=== PATIENT | male | born 1960 | race American Indian/Alaskan Native ===

== ENCOUNTER 2018-08-31 20:33 | Inpatient (IN) | payer MEDICAID ==
--- NOTE | 2018-08-31 21:33 | C.PDOC ---
History Of Present Illness 57 y/o male pt with hx of b/l hip replacement presents to the ER c/o right hip pain. Pt reports of a fall today in the parking lot, landing on his right hip. Pt denies LOC, head injury or any other complaints or associated sx at this time. Time Seen by Provider: 08/31/18 21:00 Chief Complaint (Nursing): Trauma History Per: Patient History/Exam Limitations: no limitations Onset/Duration Of Symptoms: Hrs Current Symptoms Are (Timing): Still Present - Hip Description Of Injury: Fell Past Medical History Reviewed: Historical Data, Nursing Documentation, Vital Signs Vital Signs: Last Vital Signs Temp 98.4 F 08/31/18 20:55 Pulse 74 08/31/18 20:55 Resp 20 08/31/18 20:55 BP 139/80 08/31/18 20:55 Pulse Ox 95 08/31/18 20:55 - Medical History PMH: HTN, Hypercholesterolemia Family History: States: No Known Family Hx - Social History Hx Alcohol Use: No Hx Substance Use: No - Immunization History Hx Tetanus Toxoid Vaccination: No Hx Influenza Vaccination: No Hx Pneumococcal Vaccination: No Review Of Systems Except As Marked, All Systems Reviewed And Found Negative. Musculoskeletal: Positive for: Other (hip pain ) Physical Exam - Physical Exam Appears: Non-toxic, No Acute Distress Skin: Normal Color, Warm, Dry Head: Atraumatic, Normacephalic Eye(s): bilateral: Normal Inspection, PERRL, EOMI Nose: Normal Oral Mucosa: Moist Chest: Symmetrical Cardiovascular: Rhythm Regular, No Murmur Respiratory: Normal Breath Sounds, No Rales, No Rhonchi, No Wheezing Gastrointestinal/Abdominal: Normal Exam, Soft, No Tenderness Extremity: Tenderness (to the right hip ), Capillary Refill (<2 sec ), No Deformity Extremity: Bilateral: Normal Color And Temperature Neurological/Psych: Oriented x3, Normal Speech ED Course And Treatment - Laboratory Results Result Diagrams: 08/31/18 21:41 08/31/18 21:41 ECG: Interpreted By Me, Viewed By Me ECG Rhythm: Sinus Rhythm Interpretation Of ECG: normal intervals, normal axis, no ST/T wave abnormality Rate From EC O2 Sat by Pulse Oximetry: 95 (RA) Pulse Ox Interpretation: Normal Medical Decision Making Medical Decision Making: Assessment: right hip pain plans: -- chem labs -- blood work -- EKG -- CXR -- ibuprofen orthopaedic notified Disposition Discussed With : Veronique Zhao Counseled Patient/Family Regarding: Studies Performed, Diagnosis - Disposition Disposition: HOSPITALIZED Disposition Time: 21:32 Condition: STABLE - Clinical Impression Clinical Impression: Hip fracture - Scribe Statement The provider has reviewed the documentation as recorded by the Scribe Roxana Naqvi Provider Attestation: All medical record entries made by the Scribe were at my direction and personally dictated by me. I have reviewed the chart and agree that the record accurately reflects my personal performance of the history, physical exam, medical decision making, and the department course for this patient. I have also personally directed, reviewed, and agree with the discharge instructions and disposition.
[2018-08-31 21:48] LABS: BASO # 0.1 K/uL (0.0-0.2); BASO % 0.9 % (0.0-2.0); EOS # 0.3 K/uL (0.0-0.7); EOS % 4.9 % (0.0-4.0); HEMOGLOBIN 12.9 g/dL (12.0-18.0); LYMPH # 1.8 K/uL (1.0-4.3); LYMPH % 28.9 % (20.0-40.0); MEAN CELL VOLUME 80.5 fL (80.0-94.0); MEAN CORPUSCULAR HEMOGLOBIN 25.8 pg (27.0-31.0); MEAN CORPUSCULAR HGB CONC 32.1 g/dL (33.0-37.0); MEAN PLATELET VOLUME 8.3 fL (7.2-11.7); MONO # 0.5 K/uL (0.0-0.8); MONO % 8.8 % (0.0-10.0); NEUT # 3.5 K/uL (1.8-7.0); NEUT % 56.5 % (50.0-75.0); RED CELL DISTRIBUTION WIDTH 15.4 % (11.5-14.5); WHITE BLOOD COUNT 6.1 K/uL (4.8-10.8)
[2018-08-31 21:55] LABS: PROTHROMBIN TIME 11.3 SECONDS (9.7-12.2)
[2018-08-31 22:05] LABS: ALB/GLOB RATIO 1.3 (1.0-2.1); ALBUMIN 4.3 g/dL (3.5-5.0); ALT/SGPT 18 U/L (21-72); AST/SGOT 30 U/L (17-59); BLOOD UREA NITROGEN 19 mg/dL (9-20); CALCIUM 8.9 mg/dl (8.6-10.4); GFR NON-AFRICAN AMERICAN > 60
--- NOTE | 2018-09-01 10:18 | CP.PCM.CON ---
History of Present Illness - History of Present Illness History of Present Illness: ID 57 yo male CC- Severe pain and restricted ROM R HIP HPI- 57 yo male who underwent primary total hip replacement in 2011 presents w ith severe pain and inability to ambulate R hip ;pt sustained fall- presented as an meergency to [facility] ER with pain and inabitlity to mabulate Xrays reveal prosthetic frcature. POt had 3 subsequnet dislocations after the index arthroplasty in 2011 Past Patient History - Infectious Disease Hx of Infectious Diseases: None - Past Medical History & Family History Past Medical History?: Yes - Past Social History Smoking Status: Heavy Smoker > 10 Cigarettes Daily - CARDIAC Hx Hypercholesterolemia: Yes Hx Hypertension: Yes - ENDOCRINE/METABOLIC Other/Comment: Borderline Diabetes - MUSCULOSKELETAL/RHEUMATOLOGICAL Hx Falls: Yes Other/Comment: Fer. Foot/Toes Bunions - PSYCHIATRIC Hx Substance Use: No - SURGICAL HISTORY Hx Surgeries: Yes Hx Orthopedic Surgery: Yes (bilateral hip surgery) - ANESTHESIA Hx Anesthesia: Yes Hx Anesthesia Reactions: No Hx Malignant Hyperthermia: No Has any member of the family had a problem w/ anesthesia?: No Meds Allergies/Adverse Reactions: Allergies Allergy/AdvReac Type Severity Reaction Status Date / Time Penicillins Allergy Verified 08/31/18 21:02 - Medications Medications: Current Medications Enoxaparin Sodium (Lovenox) 40 mg SC DAILY [facility] Hydromorphone HCl (Dilaudid) 1 mg IVP Q4H PRN PRN Reason: Pain, moderate (4-7) Influenza Virus Vaccine (Flucelvax Quad 2653-5578 Syr) 60 mcg IM .ONCE ONE Stop: 09/03/18 11:01 Pneumococcal Polyvalent Vaccine (Pneumovax 23 Vaccine) 0.5 ml IM .ONCE ONE Stop: 09/03/18 11:01 Physical Exam - Additional Findings Additional findings: Physical Exam systemic exam morbidly obese 57 yo male systemnic physical exam as per Medicine Musculoskekeltal stance/gaoit- defrred pt wiht obvious pain and deformity R lower ext N/V intact;some evidence fro hypestheisa R lower ext Results - Vital Signs Recent Vital Signs: Last Vital Signs Temp 97.8 F 09/01/18 07:00 Pulse 56 L 09/01/18 07:00 Resp 20 09/01/18 07:00 BP 141/93 H 09/01/18 07:00 Pulse Ox 96 09/01/18 07:00 - Labs Result Diagrams: 08/31/18 21:41 08/31/18 21:41 Labs: Laboratory Results - last 24 hr 08/31/18 08/31/18 08/31/18 21:41 21:41 21:41 WBC 6.1 RBC 5.00 Hgb 12.9 Hct 40.3 MCV 80.5 MCH 25.8 L MCHC 32.1 L RDW 15.4 H Plt Count 198 MPV 8.3 Neut % (Auto) 56.5 Lymph % (Auto) 28.9 Alger % (Auto) 8.8 Eos % (Auto) 4.9 H Baso % (Auto) 0.9 Neut # (Auto) 3.5 Lymph # (Auto) 1.8 Alger # (Auto) 0.5 Eos # (Auto) 0.3 Baso # (Auto) 0.1 PT 11.3 INR 1.0 APTT 33 Sodium 132 Potassium 4.2 Chloride 90 L Carbon Dioxide 35 H Anion Gap 11 BUN 19 Creatinine 1.0 Est GFR ( Amer) > 60 Est GFR (Non-Af Amer) > 60 POC Glucose (mg/dL) Random Glucose 210 H Calcium 8.9 Total Bilirubin 0.2 AST 30 ALT 18 L Alkaline Phosphatase 83 Total Protein 7.7 Albumin 4.3 Globulin 3.4 Albumin/Globulin Ratio 1.3 Blood Type Antibody Screen 08/31/18 09/01/18 21:41 06:20 WBC RBC Hgb Hct MCV MCH MCHC RDW Plt Count MPV Neut % (Auto) Lymph % (Auto) Alger % (Auto) Eos % (Auto) Baso % (Auto) Neut # (Auto) Lymph # (Auto) Alger # (Auto) Eos # (Auto) Baso # (Auto) PT INR APTT Sodium Potassium Chloride Carbon Dioxide Anion Gap BUN Creatinine Est GFR ( Amer) Est GFR (Non-Af Amer) POC Glucose (mg/dL) 151 H Random Glucose Calcium Total Bilirubin AST ALT Alkaline Phosphatase Total Protein Albumin Globulin Albumin/Globulin Ratio Blood Type O POSITIVE Antibody Screen Negative - Impressions Impression: Xrays a/P pelvis xray and A/P and attempted frog lateral of R hiup reveal evdience for fx prosthesis Assessment & Plan - Assessment and Plan (Free Text) Assessment: A- Fx R toatl hip/ femoral stem prosthesis P- For revisin THR preop planning must be accomplished for this extremely high risk/difficult case. Possibility of toatl reveison /possibility of isolated femoral componenet revision/possibility pof removing all components in a Girdlestone type procedure discussed. Pt prenets to hospital with hip abduction brace(??) janes having used in for sveeral years. when specifically questioned he noted the paoin and iunability to ambulate occurred yesterday in the fall at an apt complex across [address] from [facility]
[2018-09-01] MEDS: Enoxaparin 40 mg Syringe SC SCH (10:25)
[2018-09-01] MEDS: HYDROmorphone 1 mg/ml ISec IVP PRN (10:35)
--- NOTE | 2018-09-01 12:17 | RAD ---
PROCEDURE: Right Hip Radiographs. HISTORY: fall COMPARISON: None. TECHNIQUE: 2 views obtained. FINDINGS: BONES: Status post total bilateral hip replacement. There is a fracture noted at the neck of the right hip prosthesis. There is dislocation of the right hip head prosthesis JOINTS: . SOFT TISSUES: Normal. OTHER FINDINGS: None. IMPRESSION: Fracture and dislocation of the right hip prosthesis noted.
--- NOTE | 2018-09-01 12:18 | RAD ---
Date of service: 08/31/2018 PROCEDURE: CHEST RADIOGRAPH, 1 VIEW HISTORY: SOB COMPARISON: No prior similar study for comparison FINDINGS: LUNGS: Small linear opacity at the lower lobes likely atelectasis or scar tissue. PLEURA: No pneumothorax or pleural fluid seen. CARDIOVASCULAR: No aortic atherosclerotic calcification present. Normal. OSSEOUS STRUCTURES: No significant abnormalities. VISUALIZED UPPER ABDOMEN: Normal. OTHER FINDINGS: None. IMPRESSION: Small linear opacity at the lung bases likely atelectasis or scar tissue.
--- NOTE | 2018-09-01 16:10 | CT ---
Date of service: 09/01/2018 PROCEDURE: CT of the right hip without contrast HISTORY: prosthesis fracture COMPARISON: Comparison is made with the previous x-ray done on 08/31/2018 TECHNIQUE: Axial and reformatted coronal and sagittal CT images of the right hip were obtained without contrast administration. 3D reformatted images of the right hip were also obtained. Total exam DLP: 2074.93 FINDINGS: The patient is status post total right hip replacement. There is fracture noted at neck of the prosthesis that connected the femoral component with the prosthesis head. There is mild superior displacement of the femoral shaft noted comparing to the hip joint and acetabulum noted. The head of the prosthesis is seen in the in place without evidence of dislocation. The acetabular component of the prosthesis is also noted in place. IMPRESSION: Fracture at neck portion of the hip prosthesis. Mild superior displacement of the femoral shaft relative to the hip noted.
[2018-09-01] MEDS: Pantoprazole 40 mg EC Tab PO SCH (18:44)
[2018-09-01] MEDS: Aspirin 325 mg EC Tablets PO SCH (18:44)
[2018-09-02 08:26] LABS: BASO % 0.5 % (0.0-2.0); EOS # 0.2 K/uL (0.0-0.7); EOS % 4.4 % (0.0-4.0); HEMOGLOBIN 13.3 g/dL (12.0-18.0); LYMPH # 1.6 K/uL (1.0-4.3); LYMPH % 31.6 % (20.0-40.0); MEAN CELL VOLUME 80.1 fL (80.0-94.0); MEAN CORPUSCULAR HEMOGLOBIN 26.6 pg (27.0-31.0); MEAN CORPUSCULAR HGB CONC 33.3 g/dL (33.0-37.0); MEAN PLATELET VOLUME 8.8 fL (7.2-11.7); MONO # 0.7 K/uL (0.0-0.8); MONO % 13.6 % (0.0-10.0); NEUT # 2.5 K/uL (1.8-7.0); NEUT % 49.9 % (50.0-75.0); RBC 4.99 Mil/uL (4.40-5.90); RED CELL DISTRIBUTION WIDTH 15.2 % (11.5-14.5); WHITE BLOOD COUNT 5.1 K/uL (4.8-10.8)
[2018-09-02 08:38] LABS: ALB/GLOB RATIO 1.2 (1.0-2.1); ALT/SGPT 11 U/L (21-72); AST/SGOT 25 U/L (17-59); BLOOD UREA NITROGEN 14 mg/dL (9-20); CALCIUM 9.2 mg/dl (8.6-10.4); GFR NON-AFRICAN AMERICAN > 60
[2018-09-02] MEDS: Aspirin 325 mg EC Tablets PO SCH (11:00)
[2018-09-02] MEDS: Enoxaparin 40 mg Syringe SC SCH (11:00)
[2018-09-02] MEDS: Pantoprazole 40 mg EC Tab PO SCH (11:00)
[2018-09-02] MEDS: HYDROmorphone 1 mg/ml ISec IVP PRN (11:30)
--- NOTE | 2018-09-02 16:19 | HP ---
HISTORY OF PRESENT ILLNESS: The patient 57 year-old male chief complaint hip replacement.Patient came to the ER, advised admission. hypertension, arthritis. PHYSICAL EXAMINATION: GENERAL: The patient is awake, alert, and oriented. VITAL SIGNS: Temperature 98, pulse 90. HEENT: Within normal limits. NECK: Supple. CHEST: Symmetrical. HEART: Regular. ABDOMEN: Soft. EXTREMITIES: No edema. IMPRESSION AND PLAN: The patient was placed on bed rest, supportive care. Veronique Zhao MD
--- NOTE | 2018-09-03 09:06 | CP.PCM.PN ---
Subjective - Date & Time of Evaluation Date of Evaluation: 09/03/18 Time of Evaluation: 09:05 - Subjective Subjective: 57 year old male with a past medical history of bilateral hip replacement, hypertension and hypercholesterolemia who presents to the hospital after tripping and hurting his hip. Patient reports walking and tripping which started the right hip pain. Of note, patient states the right hip has been dislocated three times after being replaced. He denies anything at home for the pain. Patient denies any other fevers, chills, headaches, dizziness, chest pain, syncopal episodes, or any other complaints. PMD: Cece Medical history: htn, hypercholesterolemia Allergies: pcn'S Surgical history: Bilateral hip replacement Social history: Current smoker. Denies illicit drug use. Objective - Vital Signs/Intake and Output Vital Signs (last 24 hours): Temp Pulse Resp BP Pulse Ox 98.2 F 74 18 116/78 92 L 09/03/18 07:54 09/03/18 07:54 09/03/18 07:54 09/03/18 07:54 09/03/18 07:54 Intake and Output: 09/03/18 09/03/18 06:59 18:59 Intake Total 480 Output Total 450 Balance 30 - Medications Medications: Current Medications Amlodipine Besylate (Norvasc) 10 mg PO DAILY [facility] Last Admin: 09/02/18 11:00 Dose: 10 mg Aspirin (Ecotrin) 325 mg PO DAILY [facility] Last Admin: 09/02/18 11:00 Dose: 325 mg Cyclobenzaprine HCl (Flexeril) 10 mg PO DAILY [facility] Last Admin: 09/02/18 11:00 Dose: 10 mg Enoxaparin Sodium (Lovenox) 40 mg SC DAILY [facility] Last Admin: 09/02/18 11:00 Dose: 40 mg Hydrochlorothiazide (Hydrodiuril) 25 mg PO DAILY [facility] Last Admin: 09/02/18 11:00 Dose: 25 mg Hydromorphone HCl (Dilaudid) 1 mg IVP Q4H PRN PRN Reason: Pain, moderate (4-7) Last Admin: 09/02/18 11:30 Dose: 1 mg Influenza Virus Vaccine (Flucelvax Quad 2112-1378 Syr) 60 mcg IM .ONCE ONE Stop: 09/03/18 11:01 Metoprolol Tartrate (Lopressor) 50 mg PO BID [facility] Last Admin: 09/02/18 18:15 Dose: 50 mg Pantoprazole Sodium (Protonix Ec Tab) 40 mg PO DAILY [facility] Last Admin: 09/02/18 11:00 Dose: 40 mg Pneumococcal Polyvalent Vaccine (Pneumovax 23 Vaccine) 0.5 ml IM .ONCE ONE Stop: 09/03/18 11:01 Rosuvastatin Calcium (Crestor) 10 mg PO HS [facility] Last Admin: 09/02/18 21:22 Dose: 10 mg - Labs Labs: 09/02/18 07:57 09/02/18 07:57 PT 11.3 SECONDS (9.7-12.2) 08/31/18 21:41 INR 1.0 08/31/18 21:41 APTT 33 SECONDS (21-34) 08/31/18 21:41 - Head Exam Head Exam: ATRAUMATIC, NORMAL INSPECTION - Eye Exam Eye Exam: EOMI, Normal appearance, PERRL Pupil Exam: NORMAL ACCOMODATION, PERRL - ENT Exam ENT Exam: Mucous Membranes Moist, Normal Oropharynx - Respiratory Exam Respiratory Exam: Clear to Ausculation Bilateral, NORMAL BREATHING PATTERN. absent: Prolonged Expiratory Phase, Respiratory Distress - Cardiovascular Exam Cardiovascular Exam: REGULAR RHYTHM, +S1, +S2 - GI/Abdominal Exam GI & Abdominal Exam: Soft, Normal Bowel Sounds. absent: Rigid, Hyperactive Bowel Sounds - Back Exam Back Exam: NORMAL INSPECTION. absent: CVA tenderness (R), paraspinal tenderness - Neurological Exam Neurological Exam: Alert, Awake, Oriented x3 - Psychiatric Exam Psychiatric exam: Normal Affect, Normal Mood. absent: Depressed - Skin Skin Exam: Dry, Intact, Normal Color Assessment and Plan - Assessment and Plan (Free Text) Assessment: 57 year old male with a past medical history of bilateral hip replacement, hypertension and hypercholesterolemia who presents to the hospital after tripping and hurting his hip. Plan: 1. Right hip pain s/p mechanical fall Hip xray:Fracture and dislocation of the right hip prosthesis noted. Hip ct scan:Fracture at neck portion of the hip prosthesis. Mild superior displacement of the femoral shaft relative to the hip noted. Orthopedics consulted Dr. Sebastian: :break of neck of stem right hip prosthesis will need complex revision total hip replacement vs revision femoral component preop planning in progress, awaiting plan as per Dr. Sebastian at this time, VTE proph, patient is tolerating OOB on own so will formally start PT with NWB RLE if tolerated to avoid deconditioning and decrease risk of VTE/pneumonia Medications: Dialaudid 1mg IVP Q4 PRN Flexeril 10mg PO DAILY 2. Hypertension Continue Norvasc 10mg PO DAILY Continue Metoprolol 50mg PO BID Continue Hydrochlorothiazide 25mg PO DAILY 3. Hypercholesterolemia Continue Rosuvastatin 10mg PO HS ppx -Protonix 40mg PO DAILY -Lovenox 40 mg SC DAILY Dispo: Expected to have revision of right hip replacement. Plan discussed with Attending Dr. Cece Delgadillo, PGY-2
[2018-09-03] MEDS ORDERED: Pneumococcal 23-Valent Vaccine IM ONE (11:00)
[2018-09-03] MEDS ORDERED: Influenza Vaccine 60 mcg/0.5 mL SYR (4YR UP) IM ONE (11:00)
[2018-09-03 11:46] LABS: BASO % 0.5 % (0.0-2.0); EOS # 0.2 K/uL (0.0-0.7); EOS % 2.8 % (0.0-4.0); HEMOGLOBIN 13.9 g/dL (12.0-18.0); LYMPH # 1.3 K/uL (1.0-4.3); LYMPH % 22.1 % (20.0-40.0); MEAN CELL VOLUME 80.7 fL (80.0-94.0); MEAN CORPUSCULAR HEMOGLOBIN 26.4 pg (27.0-31.0); MEAN CORPUSCULAR HGB CONC 32.7 g/dL (33.0-37.0); MEAN PLATELET VOLUME 8.9 fL (7.2-11.7); MONO # 0.6 K/uL (0.0-0.8); MONO % 9.9 % (0.0-10.0); NEUT # 3.8 K/uL (1.8-7.0); NEUT % 64.7 % (50.0-75.0); RBC 5.25 Mil/uL (4.40-5.90); RED CELL DISTRIBUTION WIDTH 15.3 % (11.5-14.5); WHITE BLOOD COUNT 5.9 K/uL (4.8-10.8)
--- NOTE | 2018-09-03 12:22 | CARD ---
APPROVED REPORT Date of service: 08/31/2018 EKG Measurement Heart [id number] <Conclusion> Normal sinus rhythm Normal ECG
[2018-09-03 12:31] LABS: ALB/GLOB RATIO 1.2 (1.0-2.1); ALBUMIN 4.1 g/dL (3.5-5.0); ALT/SGPT 16 U/L (21-72); AST/SGOT 24 U/L (17-59); BLOOD UREA NITROGEN 24 mg/dL (9-20); CALCIUM 8.9 mg/dl (8.6-10.4); GFR NON-AFRICAN AMERICAN > 60
--- NOTE | 2018-09-03 14:14 | CP.PCM.PN ---
Subjective - Date & Time of Evaluation Date of Evaluation: 09/03/18 Time of Evaluation: 14:12 - Subjective Subjective: Patient states his pain is better controlled today. No new complaints. Denies CP/SOB/dizziness. Objective - Vital Signs/Intake and Output Vital Signs (last 24 hours): Temp Pulse Resp BP Pulse Ox 98.2 F 74 18 116/78 92 L 09/03/18 07:54 09/03/18 07:54 09/03/18 07:54 09/03/18 07:54 09/03/18 07:54 Intake and Output: 09/03/18 09/03/18 06:59 18:59 Intake Total 480 Output Total 450 Balance 30 - Medications Medications: Current Medications Amlodipine Besylate (Norvasc) 10 mg PO DAILY [facility] Last Admin: 09/02/18 11:00 Dose: 10 mg Aspirin (Ecotrin) 325 mg PO DAILY [facility] Last Admin: 09/02/18 11:00 Dose: 325 mg Cyclobenzaprine HCl (Flexeril) 10 mg PO DAILY [facility] Last Admin: 09/02/18 11:00 Dose: 10 mg Enoxaparin Sodium (Lovenox) 40 mg SC DAILY [facility] Last Admin: 09/02/18 11:00 Dose: 40 mg Hydrochlorothiazide (Hydrodiuril) 25 mg PO DAILY [facility] Last Admin: 09/02/18 11:00 Dose: 25 mg Hydromorphone HCl (Dilaudid) 1 mg IVP Q4H PRN PRN Reason: Pain, moderate (4-7) Last Admin: 09/02/18 11:30 Dose: 1 mg Metoprolol Tartrate (Lopressor) 50 mg PO BID [facility] Last Admin: 09/02/18 18:15 Dose: 50 mg Pantoprazole Sodium (Protonix Ec Tab) 40 mg PO DAILY [facility] Last Admin: 09/02/18 11:00 Dose: 40 mg Rosuvastatin Calcium (Crestor) 10 mg PO HS [facility] Last Admin: 09/02/18 21:22 Dose: 10 mg - Labs Labs: 09/03/18 11:35 09/03/18 11:35 PT 11.3 SECONDS (9.7-12.2) 08/31/18 21:41 INR 1.0 08/31/18 21:41 APTT 33 SECONDS (21-34) 03/29/19 21:41 - Extremities Exam Additional comments: RLE: +ROM ankle/toes, senation intact +DP/PT pulses calves soft NT neg homans Assessment and Plan (1) Broken internal hip prosthesis Assessment & Plan: break of neck of stem right hip prosthesis will need complex revision total hip replacement vs revision femoral component preop planning in progress, awaiting plan as per Dr. Sebastian at this time, VTE proph, patient is tolerating OOB on own so will formally start PT with NWB RLE if tolerated to avoid deconditioning and decrease risk of VTE/pneumonia d/w Dr. Sebastian, agrees with above Status: Acute
[2018-09-03] MEDS: HYDROmorphone 1 mg/ml ISec IVP PRN (17:27)
--- NOTE | 2018-09-04 09:28 | CP.PCM.PN ---
Subjective - Date & Time of Evaluation Date of Evaluation: 09/04/18 Time of Evaluation: 09:28 - Subjective Subjective: Medicine Progress Note: Patient seen and examined at bedside. Per nursing no acute events occurred overnight. Patient denies any fevers, chills, headaches, chest pain, abdominal pain, changes in vision, or any other complaints. Objective - Vital Signs/Intake and Output Vital Signs (last 24 hours): Temp Pulse Resp BP Pulse Ox 98.5 F 74 20 139/97 H 96 09/04/18 07:00 09/04/18 07:00 09/04/18 07:00 09/04/18 07:00 09/04/18 07:00 - Medications Medications: Current Medications Amlodipine Besylate (Norvasc) 10 mg PO DAILY [facility] Last Admin: 09/02/18 11:00 Dose: 10 mg Aspirin (Ecotrin) 325 mg PO DAILY [facility] Last Admin: 09/02/18 11:00 Dose: 325 mg Cyclobenzaprine HCl (Flexeril) 10 mg PO DAILY [facility] Last Admin: 09/02/18 11:00 Dose: 10 mg Enoxaparin Sodium (Lovenox) 40 mg SC DAILY [facility] Last Admin: 09/02/18 11:00 Dose: 40 mg Hydrochlorothiazide (Hydrodiuril) 25 mg PO DAILY [facility] Last Admin: 09/02/18 11:00 Dose: 25 mg Hydromorphone HCl (Dilaudid) 1 mg IVP Q4H PRN PRN Reason: Pain, moderate (4-7) Last Admin: 09/03/18 17:27 Dose: 1 mg Metoprolol Tartrate (Lopressor) 50 mg PO BID [facility] Last Admin: 09/03/18 17:20 Dose: 50 mg Pantoprazole Sodium (Protonix Ec Tab) 40 mg PO DAILY [facility] Last Admin: 09/02/18 11:00 Dose: 40 mg Rosuvastatin Calcium (Crestor) 10 mg PO HS [facility] Last Admin: 09/03/18 21:06 Dose: 10 mg - Labs Labs: 09/03/18 11:35 09/03/18 11:35 PT 11.3 SECONDS (9.7-12.2) 08/31/18 21:41 INR 1.0 08/31/18 21:41 APTT 33 SECONDS (21-34) 08/31/18 21:41 - Head Exam Head Exam: ATRAUMATIC, NORMAL INSPECTION - Eye Exam Eye Exam: EOMI, Normal appearance, PERRL Pupil Exam: NORMAL ACCOMODATION - ENT Exam ENT Exam: Mucous Membranes Moist - Respiratory Exam Respiratory Exam: Clear to Ausculation Bilateral, NORMAL BREATHING PATTERN. absent: Prolonged Expiratory Phase, Respiratory Distress - Cardiovascular Exam Cardiovascular Exam: REGULAR RHYTHM, +S1, +S2. absent: Rubs - GI/Abdominal Exam GI & Abdominal Exam: Soft, Normal Bowel Sounds. absent: Hyperactive Bowel Sounds - Extremities Exam Extremities Exam: Full ROM, Normal Inspection. absent: Pedal Edema - Back Exam Back Exam: NORMAL INSPECTION. absent: paraspinal tenderness - Neurological Exam Neurological Exam: Alert, Awake, CN II-XII Intact, Oriented x3 - Psychiatric Exam Psychiatric exam: Normal Affect, Normal Mood. absent: Depressed - Skin Skin Exam: Dry, Intact Assessment and Plan - Assessment and Plan (Free Text) Plan: 57 year old male with a past medical history of bilateral hip replacement, hypertension and hypercholesterolemia who presents to the hospital after tripping and hurting his hip. Plan: 1. Right hip pain s/p mechanical fall Hip xray:Fracture and dislocation of the right hip prosthesis noted. Hip ct scan:Fracture at neck portion of the hip prosthesis. Mild superior displacement of the femoral shaft relative to the hip noted. Orthopedics consulted Dr. Sebastian: :break of neck of stem right hip prosthesis will need complex revision total hip replacement vs revision femoral component preop planning in progress, per Dr. Sebastian PA expected to go to O.R. at this time, VTE proph, patient is tolerating OOB on own so will formally start PT with NWB RLE if tolerated to avoid deconditioning and decrease risk of VTE/pneumonia Medications: Dialaudid 1mg IVP Q4 PRN Flexeril 10mg PO DAILY 2. Hypertension Continue Norvasc 10mg PO DAILY Continue Metoprolol 50mg PO BID Continue Hydrochlorothiazide 25mg PO DAILY 3. Hypercholesterolemia Continue Rosuvastatin 10mg PO HS ppx -Protonix 40mg PO DAILY -Lovenox 40 mg SC DAILY to be held 24 hours prior to surgery Dispo: Expected to have revision of right hip replacement in house per Dr. Sebastian . Plan discussed with Attending Dr. Cece Delgadillo, PGY-2
[2018-09-04] MEDS: Aspirin 325 mg EC Tablets PO SCH (10:34)
[2018-09-04] MEDS: Pantoprazole 40 mg EC Tab PO SCH (10:34)
[2018-09-04] MEDS: Enoxaparin 40 mg Syringe SC SCH (10:36)
--- NOTE | 2018-09-04 14:16 | CP.PCM.PN ---
Subjective - Date & Time of Evaluation Date of Evaluation: 09/04/18 Time of Evaluation: 14:15 - Subjective Subjective: Patient states pain is controlled with medication. No new complaints. Objective - Vital Signs/Intake and Output Vital Signs (last 24 hours): Temp Pulse Resp BP Pulse Ox 98.5 F 74 20 139/97 H 96 09/04/18 07:00 09/04/18 07:00 09/04/18 07:00 09/04/18 07:00 09/04/18 07:00 - Medications Medications: Current Medications Amlodipine Besylate (Norvasc) 10 mg PO DAILY [facility] Last Admin: 09/04/18 10:35 Dose: 10 mg Aspirin (Ecotrin) 325 mg PO DAILY [facility] Last Admin: 09/04/18 10:34 Dose: 325 mg Cyclobenzaprine HCl (Flexeril) 10 mg PO DAILY [facility] Last Admin: 09/04/18 10:35 Dose: 10 mg Enoxaparin Sodium (Lovenox) 40 mg SC DAILY [facility] Last Admin: 09/04/18 10:36 Dose: 40 mg Hydrochlorothiazide (Hydrodiuril) 25 mg PO DAILY [facility] Last Admin: 09/04/18 10:42 Dose: 25 mg Hydromorphone HCl (Dilaudid) 1 mg IVP Q4H PRN PRN Reason: Pain, moderate (4-7) Last Admin: 09/03/18 17:27 Dose: 1 mg Metoprolol Tartrate (Lopressor) 50 mg PO BID [facility] Last Admin: 09/04/18 10:36 Dose: 50 mg Pantoprazole Sodium (Protonix Ec Tab) 40 mg PO DAILY [facility] Last Admin: 09/04/18 10:34 Dose: 40 mg Rosuvastatin Calcium (Crestor) 10 mg PO HS [facility] Last Admin: 09/03/18 21:06 Dose: 10 mg - Labs Labs: 09/03/18 11:35 09/03/18 11:35 PT 11.3 SECONDS (9.7-12.2) 08/31/18 21:41 INR 1.0 08/31/18 21:41 APTT 33 SECONDS (21-34) 08/31/18 21:41 - Extremities Exam Additional comments: RLE: +ROM ankle/toes, senation intact +DP/PT pulses calves soft NT neg homans Assessment and Plan (1) Broken internal hip prosthesis Assessment & Plan: break of neck of stem right hip prosthesis will need complex revision total hip replacement vs revision femoral component preop planning in progress, plan for surgery 09/06 at 11am at this time, VTE proph, patient is tolerating OOB on own so will formally start PT with NWB RLE if tolerated to avoid deconditioning and decrease risk of VTE/pneumonia SCDs BLE aspirin held will hold lovenox 24 hours prior to procedure check u/a, hgbA1c, vit d need tight glucose control perioperatively to decrease risk of infection labs in am, T&C d/w Dr. Sebastian, agrees with above Status: Acute
[2018-09-04 15:55] LABS: SQUAMOUS EPITHIAL 1 /hpf (0-5); URINE BILIRUBIN NEGATIVE (NEGATIVE); URINE BLOOD NEGATIVE (NEGATIVE); URINE CLARITY Hazy (Clear); URINE COLOR Yellow (YELLOW); URINE GLUCOSE (UA) 3+ mg/dL (Normal); URINE LEUKOCYTE ESTERASE TRACE Leu/uL (Negative); URINE PROTEIN NEGATIVE (NEGATIVE)
[2018-09-04] MEDS: HYDROmorphone 1 mg/ml ISec IVP PRN (16:35)
--- NOTE | 2018-09-05 07:58 | CP.PCM.PN ---
Subjective - Date & Time of Evaluation Date of Evaluation: 09/05/18 Time of Evaluation: 07:58 - Subjective Subjective: Medicine Progress Note - Dr Zhao's service Patient seen and examined at bedside. Per nursing no acute events overnight. Patient is doing well. He is scheduled for the OR tomorrow with ortho. Objective - Vital Signs/Intake and Output Vital Signs (last 24 hours): Temp Pulse Resp BP Pulse Ox 98 F 75 20 119/79 96 09/05/18 07:00 09/05/18 07:00 09/05/18 07:00 09/05/18 07:00 09/05/18 07:00 Intake and Output: 09/05/18 09/05/18 06:59 18:59 Intake Total 500 Output Total 600 Balance -100 - Medications Medications: Current Medications Amlodipine Besylate (Norvasc) 10 mg PO DAILY [facility] [place] Last Admin: 09/04/18 10:35 Dose: 10 mg Aspirin (Ecotrin) 325 mg PO DAILY [facility] Last Admin: 09/04/18 10:34 Dose: 325 mg Cyclobenzaprine HCl (Flexeril) 10 mg PO DAILY [facility] Last Admin: 09/04/18 10:35 Dose: 10 mg Enoxaparin Sodium (Lovenox) 40 mg SC DAILY [facility] [place] Last Admin: 09/04/18 10:36 Dose: 40 mg Hydrochlorothiazide (Hydrodiuril) 25 mg PO DAILY [facility] Last Admin: 09/04/18 10:42 Dose: 25 mg Hydromorphone HCl (Dilaudid) 1 mg IVP Q4H PRN PRN Reason: Pain, moderate (4-7) Last Admin: 09/04/18 16:35 Dose: 1 mg Metoprolol Tartrate (Lopressor) 50 mg PO BID [facility] [place] Last Admin: 09/04/18 10:36 Dose: 50 mg Pantoprazole Sodium (Protonix Ec Tab) 40 mg PO DAILY [facility] [place] Last Admin: 09/04/18 10:34 Dose: 40 mg Rosuvastatin Calcium (Crestor) 10 mg PO HS [facility] Last Admin: 09/04/18 21:17 Dose: 10 mg - Labs Labs: 09/03/18 11:35 09/03/18 11:35 PT 11.3 SECONDS (9.7-12.2) 08/31/18 21:41 INR 1.0 08/31/18 21:41 APTT 33 SECONDS (21-34) 08/31/18 21:41 - Additional Findings Additional findings: - Head Exam Head Exam: ATRAUMATIC, NORMAL INSPECTION - Eye Exam Eye Exam: EOMI, Normal appearance, PERRL Pupil Exam: NORMAL ACCOMODATION - ENT Exam ENT Exam: Mucous Membranes Moist - Respiratory Exam Respiratory Exam: Clear to Ausculation Bilateral, NORMAL BREATHING PATTERN. absent: Prolonged Expiratory Phase, Respiratory Distress - Cardiovascular Exam Cardiovascular Exam: REGULAR RHYTHM, +S1, +S2. absent: Rubs - GI/Abdominal Exam GI & Abdominal Exam: Soft, Normal Bowel Sounds. absent: Hyperactive Bowel Sounds - Extremities Exam Extremities Exam: Full ROM, Normal Inspection. absent: Pedal Edema - Back Exam Back Exam: NORMAL INSPECTION. absent: paraspinal tenderness - Neurological Exam Neurological Exam: Alert, Awake, CN II-XII Intact, Oriented x3 - Psychiatric Exam Psychiatric exam: Normal Affect, Normal Mood. absent: Depressed - Skin Skin Exam: Dry, Intact Assessment and Plan - Assessment and Plan (Free Text) Assessment: 57 year old male with a past medical history of bilateral hip replacement, hypertension and hypercholesterolemia who presents to the hospital after tripping and hurting his hip. Plan: Right hip pain -s/p mechanical fall -Hip xray:Fracture and dislocation of the right hip prosthesis noted. -Hip CT scan:Fracture at neck portion of the hip prosthesis. Mild superior displacement of the femoral shaft relative to the hip noted. -Cipro 250mg PO BID x 6 doses -Patient scheduled for the OR tomorrow -Lovenox to be held -Physical therapy -Ortho on consult, Dr Sebastian, help appreciated New Diagnosed Diabetes Mellitus -A1C 8.5 today -Started on ISS and accuchecks ACHS -Patient to be discharged on Metformin 500mg PO BID Hypertension -Continue Norvasc 10mg PO DAILY -Continue Metoprolol 50mg PO BID -Continue Hydrochlorothiazide 25mg PO DAILY Hypercholesterolemia -Continue Rosuvastatin 10mg PO HS GI/DVT ppx -Protonix 40mg PO DAILY -Lovenox 40 mg SC DAILY to be held 24 hours prior to surgery Dispo: Expected to have revision of right hip replacement in house per Dr. Sebastian . Plan discussed with Dr Cece Carlson DO PGY-2
[2018-09-05 08:10] LABS: HEMOGLOBIN 13.9 g/dL (12.0-18.0); MEAN CELL VOLUME 80.8 fL (80.0-94.0); MEAN CORPUSCULAR HEMOGLOBIN 26.2 pg (27.0-31.0); MEAN CORPUSCULAR HGB CONC 32.5 g/dL (33.0-37.0); MEAN PLATELET VOLUME 9.1 fL (7.2-11.7); RBC 5.32 Mil/uL (4.40-5.90); RED CELL DISTRIBUTION WIDTH 15.5 % (11.5-14.5); WHITE BLOOD COUNT 5.1 K/uL (4.8-10.8)
[2018-09-05 08:18] LABS: INR 1.1; PROTHROMBIN TIME 12.1 SECONDS (9.7-12.2)
[2018-09-05 08:21] LABS: BLOOD UREA NITROGEN 31 mg/dL (9-20); CALCIUM 9.3 mg/dl (8.6-10.4); GFR NON-AFRICAN AMERICAN > 60
[2018-09-05] MEDS: Enoxaparin 40 mg Syringe SC SCH (10:53)
[2018-09-05] MEDS: Pantoprazole 40 mg EC Tab PO SCH (10:55)
[2018-09-05] MEDS: Sodium Chloride 0.9% 1,000 ML IV SCH ×2 (11:16→22:59)
[2018-09-05] MEDS ORDERED: (Novolog) Insulin Aspart, Recombinant 100 u/ml 10 ml vial SC SCH (11:30)
[2018-09-05] MEDS ORDERED: Glucagon Recombinant 1 mg Inj IM PRN (15:02)
[2018-09-05] MEDS ORDERED: Dextrose 50% SYRINGE Inj (50 ml) IV PRN (15:02)
--- NOTE | 2018-09-05 15:23 | CP.PCM.PN ---
Subjective - Date & Time of Evaluation Date of Evaluation: 09/05/18 Time of Evaluation: 15:18 - Subjective Subjective: Patient states pain is controlled. Discussed with patient that he is now diagnosed as a diabetic, and he is at increased risk of infection due to his uncontrolled diabetes. Advised patient he will need strict adherence to dietary restrictions especially in the perioperative period to try to decrease risk. Smoking cessation also advised. Patient verbalized understanding. Dietary counseling ordered. Patient denies history of bleeding disorder or blood clots, says that before when he was in the hospital they told him he had a "mini stroke" when his sugar was 700. He is poor historian with details, but says he is sure he was told he had mini stroke. Objective - Vital Signs/Intake and Output Vital Signs (last 24 hours): Temp Pulse Resp BP Pulse Ox 98 F 75 20 119/79 96 09/05/18 07:00 09/05/18 07:00 09/05/18 07:00 09/05/18 07:00 09/05/18 07:00 Intake and Output: 09/05/18 09/05/18 06:59 18:59 Intake Total 500 Output Total 600 Balance -100 - Medications Medications: Current Medications Amlodipine Besylate (Norvasc) 10 mg PO DAILY [facility] Last Admin: 09/05/18 10:54 Dose: 10 mg Aspirin (Ecotrin) 325 mg PO DAILY [facility] Last Admin: 09/04/18 10:34 Dose: 325 mg Ciprofloxacin (Cipro) 250 mg PO BID [facility]; Protocol Stop: 09/07/18 18:01 Last Admin: 09/05/18 10:52 Dose: 250 mg Cyclobenzaprine HCl (Flexeril) 10 mg PO DAILY [facility] Last Admin: 09/05/18 10:54 Dose: 10 mg Dextrose (Dextrose 50% Inj) 0 ml IV STAT PRN; Protocol PRN Reason: Hypoglycemia Protocol Dextrose (Glutose 15) 0 gm PO ONCE PRN; Protocol PRN Reason: Hypoglycemia Protocol Enoxaparin Sodium (Lovenox) 40 mg SC DAILY [facility] Last Admin: 09/05/18 10:53 Dose: 40 mg Glucagon (Glucagen Diagnostic Kit) 0 mg IM STAT PRN; Protocol PRN Reason: Hypoglycemia Protocol Hydrochlorothiazide (Hydrodiuril) 25 mg PO DAILY [facility] Last Admin: 09/05/18 10:54 Dose: 25 mg Hydromorphone HCl (Dilaudid) 1 mg IVP Q4H PRN PRN Reason: Pain, moderate (4-7) Last Admin: 09/04/18 16:35 Dose: 1 mg Sodium Chloride (Sodium Chloride 0.9%) 1,000 mls @ 100 mls/hr IV .Q10H [facility] Last Admin: 09/05/18 11:16 Dose: 100 mls/hr Dextrose (Dextrose 5% In Water 1000 Ml) 1,000 mls @ 0 mls/hr IV .Q0M PRN; Protocol PRN Reason: Hypoglycemia Protocol Insulin Aspart (Novolog) 0 unit SC ACHS [facility]; Protocol Metoprolol Tartrate (Lopressor) 50 mg PO BID [facility] Last Admin: 09/05/18 10:54 Dose: 50 mg Pantoprazole Sodium (Protonix Ec Tab) 40 mg PO DAILY [facility] Last Admin: 09/05/18 10:55 Dose: 40 mg Rosuvastatin Calcium (Crestor) 10 mg PO HS [facility]PL[facility] Last Admin: 09/04/18 21:17 Dose: 10 mg - Labs Labs: 09/05/18 07:50 09/05/18 07:50 PT 12.1 SECONDS (9.7-12.2) 09/05/18 07:50 INR 1.1 09/05/18 07:50 APTT 35 SECONDS (21-34) H 09/05/18 07:50 - Extremities Exam Additional comments: RLE: +ROM ankle/toes Assessment and Plan (1) Broken internal hip prosthesis Assessment & Plan: T&C for OR tomorrow NPO p MN lovenox held labs in am IVF for dehydration Status: Acute (2) Diabetes mellitus type 2, uncontrolled Assessment & Plan: A1c 8.4 diet changed dietary counselling Further mgmt per medical team Need tight control of BS in perioperative period to decrease risk of infection especially post operative Status: Acute
[2018-09-05] MEDS: (Novolog) Insulin Aspart, Recombinant 100 u/ml 10 ml vial SC SCH ×2 (17:17→21:09)
[2018-09-05] MEDS: HYDROmorphone 1 mg/ml ISec IVP PRN ×2 (18:18→21:06)
[2018-09-06] MEDS: Sodium Chloride 0.9% 1,000 ML IV SCH ×2 (05:53→15:43)
--- NOTE | 2018-09-06 07:39 | CP.PCM.PN ---
Subjective - Date & Time of Evaluation Date of Evaluation: 09/06/18 Time of Evaluation: 07:38 - Subjective Subjective: Medicine Progress Note - Dr Zhao's service Patient seen and examined at bedside. Per nursing no acute events overnight. Patient is doing well, he is NPO for the OR today. Offers no complaints at this time. Objective - Vital Signs/Intake and Output Vital Signs (last 24 hours): Temp Pulse Resp BP Pulse Ox 98.5 F 67 20 114/74 96 09/05/18 23:10 09/05/18 23:10 09/05/18 23:10 09/05/18 23:10 09/05/18 23:10 Intake and Output: 09/06/18 09/06/18 06:59 18:59 Intake Total 0 Output Total 900 Balance -900 - Medications Medications: Current Medications Amlodipine Besylate (Norvasc) 10 mg PO DAILY [facility] Last Admin: 09/05/18 10:54 Dose: 10 mg Aspirin (Ecotrin) 325 mg PO DAILY [facility] Last Admin: 09/04/18 10:34 Dose: 325 mg Ciprofloxacin (Cipro) 250 mg PO BID [facility]; Protocol Stop: 09/07/18 18:01 Last Admin: 09/05/18 18:11 Dose: 250 mg Cyclobenzaprine HCl (Flexeril) 10 mg PO DAILY [facility] Last Admin: 09/05/18 10:54 Dose: 10 mg Dextrose (Dextrose 50% Inj) 0 ml IV STAT PRN; Protocol PRN Reason: Hypoglycemia Protocol Dextrose (Glutose 15) 0 gm PO ONCE PRN; Protocol PRN Reason: Hypoglycemia Protocol Enoxaparin Sodium (Lovenox) 40 mg SC DAILY [facility] Last Admin: 09/05/18 10:53 Dose: 40 mg Glucagon (Glucagen Diagnostic Kit) 0 mg IM STAT PRN; Protocol PRN Reason: Hypoglycemia Protocol Hydrochlorothiazide (Hydrodiuril) 25 mg PO DAILY [facility] Last Admin: 09/05/18 10:54 Dose: 25 mg Hydromorphone HCl (Dilaudid) 1 mg IVP Q4H PRN PRN Reason: Pain, moderate (4-7) Last Admin: 09/05/18 21:06 Dose: 1 mg Sodium Chloride (Sodium Chloride 0.9%) 1,000 mls @ 100 mls/hr IV .Q10H [facility] Last Admin: 09/06/18 05:53 Dose: 100 mls/hr Dextrose (Dextrose 5% In Water 1000 Ml) 1,000 mls @ 0 mls/hr IV .Q0M PRN; Protocol PRN Reason: Hypoglycemia Protocol Insulin Aspart (Novolog) 0 unit SC ACHS [facility]; Protocol Metoprolol Tartrate (Lopressor) 50 mg PO BID [facility] Last Admin: 09/05/18 18:11 Dose: 50 mg Pantoprazole Sodium (Protonix Ec Tab) 40 mg PO DAILY [facility] Last Admin: 09/05/18 10:55 Dose: 40 mg Rosuvastatin Calcium (Crestor) 10 mg PO HS [facility] Last Admin: 09/05/18 21:13 Dose: 10 mg - Labs Labs: 09/05/18 07:50 09/05/18 07:50 PT 12.1 SECONDS (9.7-12.2) 09/05/18 07:50 INR 1.1 09/05/18 07:50 APTT 35 SECONDS (21-34) H 09/05/18 07:50 - Additional Findings Additional findings: - Head Exam Head Exam: ATRAUMATIC, NORMAL INSPECTION - Eye Exam Eye Exam: EOMI, Normal appearance, PERRL Pupil Exam: NORMAL ACCOMODATION - ENT Exam ENT Exam: Mucous Membranes Moist - Respiratory Exam Respiratory Exam: Clear to Ausculation Bilateral, NORMAL BREATHING PATTERN. absent: Prolonged Expiratory Phase, Respiratory Distress - Cardiovascular Exam Cardiovascular Exam: REGULAR RHYTHM, +S1, +S2. absent: Rubs - GI/Abdominal Exam GI & Abdominal Exam: Soft, Normal Bowel Sounds. absent: Hyperactive Bowel Sounds - Extremities Exam Extremities Exam: Full ROM, Normal Inspection. absent: Pedal Edema - Back Exam Back Exam: NORMAL INSPECTION. absent: paraspinal tenderness - Neurological Exam Neurological Exam: Alert, Awake, CN II-XII Intact, Oriented x3 - Psychiatric Exam Psychiatric exam: Normal Affect, Normal Mood. absent: Depressed - Skin Skin Exam: Dry, Intact Assessment and Plan - Assessment and Plan (Free Text) Assessment: 57 year old male with a past medical history of bilateral hip replacement, hypertension and hypercholesterolemia who presents to the hospital after tripping and hurting his hip. Plan: Right hip pain -s/p mechanical fall -Hip xray:Fracture and dislocation of the right hip prosthesis noted. -Hip CT scan:Fracture at neck portion of the hip prosthesis. Mild superior displacement of the femoral shaft relative to the hip noted. -Cipro 250mg PO BID x 6 doses -Patient scheduled for the OR today -Lovenox to be held -Physical therapy -Ortho on consult, Dr Sebastian, help appreciated New Diagnosed Diabetes Mellitus -A1C 8.5 today -Started on ISS and accuchecks ACHS -Endocrinology on consult, Dr Martins, help appreciated -Patient to be discharged on Metformin 500mg PO BID Hypertension -Continue Norvasc 10mg PO DAILY -Continue Metoprolol 50mg PO BID -Continue Hydrochlorothiazide 25mg PO DAILY Hypercholesterolemia -Continue Rosuvastatin 10mg PO HS GI/DVT ppx -Protonix 40mg PO DAILY -Lovenox 40 mg SC DAILY to be held 24 hours prior to surgery Dispo: Expected to have revision of right hip replacement in house per Dr. Sebastian today. Plan discussed with Dr Cece Carlson DO PGY-2
[2018-09-06] MEDS: (Novolog) Insulin Aspart, Recombinant 100 u/ml 10 ml vial SC SCH ×4 (08:18→21:53)
[2018-09-06 08:22] LABS: HEMOGLOBIN 14.5 g/dL (12.0-18.0); MEAN CELL VOLUME 79.9 fL (80.0-94.0); MEAN CORPUSCULAR HEMOGLOBIN 26.3 pg (27.0-31.0); MEAN CORPUSCULAR HGB CONC 32.9 g/dL (33.0-37.0); MEAN PLATELET VOLUME 8.8 fL (7.2-11.7); RBC 5.53 Mil/uL (4.40-5.90); RED CELL DISTRIBUTION WIDTH 14.9 % (11.5-14.5); WHITE BLOOD COUNT 5.5 K/uL (4.8-10.8)
[2018-09-06 08:52] LABS: BLOOD UREA NITROGEN 22 mg/dL (9-20); CALCIUM 9.2 mg/dl (8.6-10.4); GFR NON-AFRICAN AMERICAN > 60
[2018-09-06] MEDS: Pantoprazole 40 mg EC Tab PO SCH (09:25)
[2018-09-06] MEDS ORDERED: Morphine 1 mg/ml preservative-free Inj(Duramorph) ONE (12:05)
[2018-09-06] MEDS ORDERED: Midazolam 2 MG/2 ML VIAL ONE (12:08)
[2018-09-06] MEDS ORDERED: Propofol 10 mg/ml Inj (20 ML) ONE (12:08)
[2018-09-06] MEDS ORDERED: ceFAZolin 1 gm in NS 2 GM/200 ML BAG IVPB ONE (12:43)
[2018-09-06] MEDS ORDERED: Rocuronium 10 mg/ml (5 ml) ONE ×2 (13:02→14:56)
[2018-09-06] MEDS ORDERED: Tranexamic Acid 1,000 MG in Sodium Chloride 0.9% 50 ML IV STA (13:03)
[2018-09-06] MEDS ORDERED: Tranexamic Acid 1,000 MG in Sodium Chloride 0.9% 50 ML IV SCH (13:30)
[2018-09-06] MEDS: EPINEPHRINE IV ONE ×2 (14:00→14:20)
[2018-09-06] MEDS: SODIUM CHLORIDE 0.9% IV ONE ×2 (14:00→14:20)
[2018-09-06] MEDS: Bacitracin 150,000 UNIT in Sodium Chloride 0.9% Irrig 3,000 ML IR SCH ×2 (14:30→14:41)
[2018-09-06] MEDS ORDERED: Absorbable Gelatin Sponge Size 100 ONE (16:53)
[2018-09-06] MEDS ORDERED: Thrombin Topical 5,000 Int Units Spray Kit ONE (16:53)
[2018-09-06] MEDS ORDERED: Bisacodyl 5mg EC Tab PO PRN (17:52)
[2018-09-06] MEDS ORDERED: Oxycodone/Acetaminophen 5/325 mg Tab PO PRN (17:58)
[2018-09-06] MEDS ORDERED: Clindamycin 600mg/50ml D5W 600 MG/50 ML VIAL IVPB SCH (18:00)
[2018-09-06] MEDS ORDERED: HYDROmorphone 0.5 mg/0.5 ml ISec IVP PRN (18:01)
--- NOTE | 2018-09-06 18:02 | PCM.SURG1 ---
Surgeon's Initial Post Op Note - Surgeon's Notes Surgeon: Jaz District Gauger: DINESH Gutierrez/2ndassist- ДМИТРИЙ Arvizu=-C Type of Anesthesia: General Endo, Spinal Anesthesia Administered By: DR Charles Pre-Operative Diagnosis: Fractured femoral component s/p R THR Operative Findings: Fractured femoral component s/p R THR. synovitis. intact acetabular componet with acceptable positioning Post-Operative Diagnosis: as above Operation Performed: Revision R THR extraction fractured femoral component. Trochanteric osteotomy. femoral neck osteotomy. release iliopsoas tendoarthrotomy syovectomy. computer navigation [employer] technology Specimen/Specimens Removed: synovium/bone/ Estimated Blood Loss: EBL {In ML}: 175 Blood Products Given: N/A Drains Used: Hemovac Date of Surgery/Procedure: 09/06/18 Time of Surgery/Procedure: 13:50 (time in room 12:30/anaesthesia indcutionm time/end surgery 1740)
--- NOTE | 2018-09-06 19:10 | RAD ---
Indication: Indication Hip one view right radiographs Comparison: None right hip radiographs performed 08/31/18 Findings: The patient is status post bilateral total hip arthroplasties with recent right hip arthroplasty revision. Soft tissue swelling, subcutaneous emphysema, and drainage catheter compatible with recent postoperative history. Alignment cannot be adequately assessed in the absence of orthogonal views. Impression: Status post right total hip revision arthroplasty as above.
[2018-09-06] MEDS: HYDROmorphone 1 mg/ml ISec IVP PRN (19:34)
[2018-09-06] MEDS: Clindamycin 600mg/50ml NS 600 MG/50 ML BAG IVPB SCH (19:35)
[2018-09-06] MEDS ORDERED: (Lantus) Insulin Glargine, Recombinant SC SCH (22:00)
--- NOTE | 2018-09-07 00:24 | CON ---
DATE: 09/06/2018 ENDOCRINOLOGY CONSULTATION LOCATION: Room 652. HISTORY OF PRESENT ILLNESS: This is a 57-year-old male with a sudden accidental fall and sustained a right hip fracture and is now being referred for diabetic evaluation because of marked hyperglycemic accelerations as noted thereof. PAST MEDICAL HISTORY: The patient actually had a bilateral total hip replacement in 2011 with persistent right hip pain as noted, remote history of type 2 diabetes also noted postoperatively and was briefly on oral hypoglycemic therapy and even insulin therapy which was discontinued because of supervening hypoglycemia with no further medical followup till the present time. FAMILY HISTORY: Positive for diabetes and hypertension. SOCIAL HISTORY: The patient is an active current smoker with over a pack a day for some years now. He has a supportive family otherwise. REVIEW OF SYSTEMS: Admits to episodic bouts of dizziness and lightheadedness with bifrontal headaches and recent easy fatigability and tiredness with suboptimal energy level. No chest pains, palpitations or PNDs; however, his oral intake has been variable with persistent dyspepsia and vague upper abdominal pain. Also admits to marked polyuria, nocturia, and polydipsia. PHYSICAL EXAMINATION: GENERAL: Overweight male, in no apparent distress. VITAL SIGNS: Blood pressure 144/80, pulse of 70 beats per minute and regular, temperature 98, respirations 20. Height is 5 feet 11 inches. Weight is 280 pounds. HEENT: Head: Normocephalic. Eyes: Anicteric with pink conjunctivae. Funduscopy not possible at this time. Ears, nose, and throat otherwise normal. NECK: Supple. Thyroid gland is normal in size. No carotid bruits or cervical adenopathy. CARDIOPULMONARY: Some adynamic precordium. S1 and S2 are rapid and regular. LUNGS: Clear to auscultation. ABDOMEN: Obese, soft with positive bowel sounds. EXTREMITIES: No peripheral edema. Pulses are +2 bilaterally. LABORATORY DATA: His chemistries showed a BUN of 22, sodium 135, potassium 4.4, chloride 94, CO2 of 32, glucose 237, and creatinine 0.8. His glucose values have ranged from 280 to 296 mg/dL. His A1c is 8.4%, clearly elevated and indicative of suboptimal metabolic control of his diabetic condition even prior to this admission, which means that he really requires oral hypoglycemic drug intervention even upon this current discharge at this time. ASSESSMENT: This is a 57-year-old male with uncontrolled and decompensated type 2 insulin-requiring diabetes and will most likely need insulin only for inpatient diabetic management because of the intercurrent physical stressors, especially with the recent right hip fracture as noted. However the patient being a recent type 2 diabetic with recent glycemic fluctuations, he would actually require oral hypoglycemic drug therapy given in combination to optimize metabolic control. PLAN OF MANAGEMENT: We will add basal insulin given as Lantus at 12 units subcu at bedtime daily to start tonight and will titrate incrementally as indicated to optimize metabolic control. The patient clearly will need diabetic education and dietary instructions at the time of this admission to reinforce healthier food choices, frequent lab testing and home glucose monitoring to monitor his blood glucose levels accordingly. We are giving the Lantus only for inpatient diabetic management and once his right hip surgery is undertaken, then we will switch him over to a more physiologic basal and bolus insulin drug combination as given. We will consider the addition of metformin given as 850 mg b.i.d. with Januvia given 100 mg once daily as ordered. We will follow and advise accordingly. Radha Martins MD
[2018-09-07] MEDS: Sodium Chloride 0.9% 1,000 ML IV SCH ×3 (01:00→11:02)
[2018-09-07] MEDS: Clindamycin 600mg/50ml NS 600 MG/50 ML BAG IVPB SCH ×3 (02:41→20:30)
[2018-09-07] MEDS: Oxycodone/Acetaminophen 5/325 mg Tab PO PRN ×2 (02:50→12:20)
[2018-09-07 07:24] LABS: MEAN CELL VOLUME 79.2 fL (80.0-94.0); MEAN CORPUSCULAR HEMOGLOBIN 25.8 pg (27.0-31.0); MEAN CORPUSCULAR HGB CONC 32.5 g/dL (33.0-37.0); MEAN PLATELET VOLUME 8.8 fL (7.2-11.7); RBC 4.7 Mil/uL (4.40-5.90); RED CELL DISTRIBUTION WIDTH 15.2 % (11.5-14.5)
[2018-09-07 07:27] LABS: WHITE BLOOD COUNT 8.7 K/uL (4.8-10.8)
[2018-09-07 07:28] LABS: HEMOGLOBIN 12.1 g/dL (12.0-18.0)
[2018-09-07 07:41] LABS: BLOOD UREA NITROGEN 26 mg/dL (9-20); CALCIUM 8.6 mg/dl (8.6-10.4); GFR NON-AFRICAN AMERICAN > 60
--- NOTE | 2018-09-07 07:46 | CP.PCM.PN ---
Subjective - Date & Time of Evaluation Date of Evaluation: 09/07/18 Time of Evaluation: 07:46 - Subjective Subjective: Medicine Progress Note - Dr Zhao's service Patient seen and examined at bedside. Per nursing no acute events overnight. Patient is doing well, he is POD day 1. Pain is controlled at this time. Offers no complaints at this time. Objective - Vital Signs/Intake and Output Vital Signs (last 24 hours): Temp Pulse Resp BP Pulse Ox 98.3 F 78 18 114/69 99 09/07/18 03:56 09/06/18 23:20 09/06/18 23:20 09/06/18 23:20 09/06/18 23:20 Intake and Output: 09/07/18 09/07/18 06:59 18:59 Intake Total 1700 Output Total 470 Balance 1230 - Medications Medications: Current Medications Acetaminophen (Tylenol 325mg Tab) 650 mg PO Q4 [facility] Last Admin: 09/07/18 03:56 Dose: Not Given Amlodipine Besylate (Norvasc) 10 mg PO DAILY [facility] Last Admin: 09/06/18 09:26 Dose: 10 mg Aspirin (Ecotrin) 325 mg PO DAILY [facility] Last Admin: 09/04/18 10:34 Dose: 325 mg Bisacodyl (Dulcolax) 10 mg PO HS PRN PRN Reason: Constipation Calcium/Vitamin D (Oscal-D 250 Mg-125 Units Tab) 1 tab PO DAILY [facility] Ciprofloxacin (Cipro) 250 mg PO BID [facility]; Protocol Stop: 09/07/18 18:01 Last Admin: 09/06/18 19:34 Dose: 250 mg Cyclobenzaprine HCl (Flexeril) 10 mg PO DAILY [facility] Last Admin: 09/06/18 09:26 Dose: 10 mg Dextrose (Dextrose 50% Inj) 0 ml IV STAT PRN; Protocol PRN Reason: Hypoglycemia Protocol Dextrose (Glutose 15) 0 gm PO ONCE PRN; Protocol PRN Reason: Hypoglycemia Protocol Docusate Sodium (Colace) 100 mg PO BID [facility] Last Admin: 09/06/18 19:33 Dose: 100 mg Enoxaparin Sodium (Lovenox) 40 mg SC Q24H [facility] Ergocalciferol (Drisdol 50,000 Intl Units Cap) 1 cap PO Q7D [facility] Ferrous Sulfate (Feosol) 325 mg PO BID [facility] Last Admin: 09/06/18 19:33 Dose: 325 mg Folic Acid (Folic Acid) 1 mg PO DAILY [facility] Glucagon (Glucagen Diagnostic Kit) 0 mg IM STAT PRN; Protocol PRN Reason: Hypoglycemia Protocol Hydrochlorothiazide (Hydrodiuril) 25 mg PO DAILY [facility] Last Admin: 09/06/18 09:25 Dose: 25 mg Hydromorphone HCl (Dilaudid) 1 mg IVP Q4H PRN PRN Reason: Pain, moderate (4-7) Last Admin: 09/05/18 21:06 Dose: 1 mg Hydromorphone HCl (Dilaudid) 1 mg IVP Q4H PRN PRN Reason: Pain, severe (8-10) Last Admin: 09/06/18 19:34 Dose: 1 mg Sodium Chloride (Sodium Chloride 0.9%) 1,000 mls @ 100 mls/hr IV .Q10H [facility] Last Admin: 09/07/18 05:15 Dose: 100 mls/hr Dextrose (Dextrose 5% In Water 1000 Ml) 1,000 mls @ 0 mls/hr IV .Q0M PRN; Protocol PRN Reason: Hypoglycemia Protocol Tranexamic Acid 1,000 mg/ (Sodium Chloride) 60 mls @ 5 mls/min IV ONCE [facility] Clindamycin Phosphate (Cleocin 600mg/50ml Ns) 600 mg in 50 mls @ 102 mls/hr IVPB Q8H [facility]; Protocol Last Admin: 09/07/18 02:41 Dose: 102 mls/hr Insulin Aspart (Novolog) 0 unit SC ACHS [facility]; Protocol Last Admin: 09/06/18 21:53 Dose: Not Given Insulin Glargine (Lantus) 12 unit SC HS [facility] Last Admin: 09/06/18 21:54 Dose: 12 units Ketorolac Tromethamine (Toradol) 30 mg IVP Q6 [facility] Stop: 09/08/18 18:01 Last Admin: 09/07/18 05:16 Dose: 30 mg Metoprolol Tartrate (Lopressor) 50 mg PO BID [facility] Last Admin: 09/06/18 19:33 Dose: 50 mg Ondansetron HCl (Zofran Inj) 4 mg IVP ONCE PRN PRN Reason: Nausea/Vomiting Oxycodone HCl (Oxycodone Immediate Release Tab) 10 mg PO Q4H PRN PRN Reason: Pain, moderate (4-7) Oxycodone/Acetaminophen (Percocet 5/325 Mg Tab) 1 tab PO Q4 PRN PRN Reason: Pain, Mild (1-3) Stop: 09/09/18 17:59 Oxycodone/Acetaminophen (Percocet 5/325 Mg Tab) 2 tab PO Q4H PRN PRN Reason: Pain, moderate (4-7) Stop: 09/09/18 17:59 Last Admin: 09/07/18 02:50 Dose: 2 tab Pantoprazole Sodium (Protonix Ec Tab) 40 mg PO DAILY [facility] Last Admin: 09/06/18 09:25 Dose: 40 mg Rosuvastatin Calcium (Crestor) 10 mg PO HS [facility] Last Admin: 09/06/18 21:54 Dose: 10 mg - Labs Labs: 09/07/18 07:04 09/07/18 07:04 PT 12.1 SECONDS (9.7-12.2) 09/05/18 07:50 INR 1.1 09/05/18 07:50 APTT 35 SECONDS (21-34) H 09/05/18 07:50 - Head Exam Head Exam: ATRAUMATIC, NORMAL INSPECTION - Eye Exam Eye Exam: EOMI, Normal appearance, PERRL. absent: Periorbital tenderness Pupil Exam: NORMAL ACCOMODATION, PERRL. absent: Irregular - ENT Exam ENT Exam: Mucous Membranes Moist, Normal Oropharynx - Respiratory Exam Respiratory Exam: Clear to Ausculation Bilateral, NORMAL BREATHING PATTERN. absent: Prolonged Expiratory Phase, Respiratory Distress - Cardiovascular Exam Cardiovascular Exam: REGULAR RHYTHM, +S1, +S2 - GI/Abdominal Exam GI & Abdominal Exam: Soft, Normal Bowel Sounds. absent: Hyperactive Bowel Sounds - Extremities Exam Extremities Exam: Full ROM, Normal Inspection. absent: Pedal Edema - Back Exam Back Exam: NORMAL INSPECTION. absent: CVA tenderness (R), paraspinal tenderness - Neurological Exam Neurological Exam: Alert, Awake, CN II-XII Intact, Oriented x3 - Psychiatric Exam Psychiatric exam: Normal Affect, Normal Mood. absent: Depressed - Skin Skin Exam: Dry, Intact, Normal Color Assessment and Plan - Assessment and Plan (Free Text) Plan: 57 year old male with a past medical history of bilateral hip replacement, hypertension and hypercholesterolemia who presents to the hospital after tripping and hurting his hip. Plan: Right hip pain -POD#1 -s/p mechanical fall -Hip xray:Fracture and dislocation of the right hip prosthesis noted. -Hip CT scan:Fracture at neck portion of the hip prosthesis. Mild superior displacement of the femoral shaft relative to the hip noted. -Cipro 250mg PO BID x 6 doses -Clindamycin 600MG ivpb q8 [facility] -Physical therapy -Ortho on consult, Dr Sebastian, help appreciated Medications: Colace 100mg PO BID [facility] Percocet 5/325MG 1 tab po q4 prn Percocet 5/325mg 2 tab po q4 prn Oxycodone 10mg PO Q4 PRN Ducolax 10mg po hs prn New Diagnosed Diabetes Mellitus -A1C 8.5 today -Started on ISS and accuchecks ACHS -Endocrinology on consult, Dr Martins, help appreciated -Patient to be discharged on Metformin 500mg PO BID Medications: Januvia 100mg PO DAILY [facility] Hypertension -Continue Norvasc 10mg PO DAILY -Continue Metoprolol 50mg PO BID -Continue Hydrochlorothiazide 25mg PO DAILY Hypercholesterolemia -Continue Rosuvastatin 10mg PO HS GI/DVT ppx -Protonix 40mg PO DAILY -Lovenox 40 mg SC DAILY to be held 24 hours prior to surgery Dispo:POD #1. Continue physical therapy. Await further recommendations from Orthopedics. Plan discussed with Dr Cece Delgadillo, PGY2
--- NOTE | 2018-09-07 07:51 | CP.PCM.PN ---
Subjective - Date & Time of Evaluation Date of Evaluation: 09/07/18 Time of Evaluation: 07:47 - Subjective Subjective: Patient states hip feels better today. Denies numbness/tingling/CP/SOB/dizziness. Objective - Vital Signs/Intake and Output Vital Signs (last 24 hours): Temp Pulse Resp BP Pulse Ox 98.3 F 78 18 114/69 99 09/07/18 03:56 09/06/18 23:20 09/06/18 23:20 09/06/18 23:20 09/06/18 23:20 Intake and Output: 09/07/18 09/07/18 06:59 18:59 Intake Total 1700 Output Total 470 Balance 1230 - Medications Medications: Current Medications Acetaminophen (Tylenol 325mg Tab) 650 mg PO Q4 [facility] Last Admin: 09/07/18 03:56 Dose: Not Given Amlodipine Besylate (Norvasc) 10 mg PO DAILY [facility] Last Admin: 09/06/18 09:26 Dose: 10 mg Aspirin (Ecotrin) 325 mg PO DAILY [facility] Last Admin: 09/04/18 10:34 Dose: 325 mg Bisacodyl (Dulcolax) 10 mg PO HS PRN PRN Reason: Constipation Calcium/Vitamin D (Oscal-D 250 Mg-125 Units Tab) 1 tab PO DAILY [facility] Ciprofloxacin (Cipro) 250 mg PO BID [facility]; Protocol Stop: 09/07/18 18:01 Last Admin: 09/06/18 19:34 Dose: 250 mg Cyclobenzaprine HCl (Flexeril) 10 mg PO DAILY [facility] Last Admin: 09/06/18 09:26 Dose: 10 mg Dextrose (Dextrose 50% Inj) 0 ml IV STAT PRN; Protocol PRN Reason: Hypoglycemia Protocol Dextrose (Glutose 15) 0 gm PO ONCE PRN; Protocol PRN Reason: Hypoglycemia Protocol Docusate Sodium (Colace) 100 mg PO BID [facility] Last Admin: 09/06/18 19:33 Dose: 100 mg Enoxaparin Sodium (Lovenox) 40 mg SC Q24H [facility] Ergocalciferol (Drisdol 50,000 Intl Units Cap) 1 cap PO Q7D [facility] Ferrous Sulfate (Feosol) 325 mg PO BID [facility] Last Admin: 09/06/18 19:33 Dose: 325 mg Folic Acid (Folic Acid) 1 mg PO DAILY [facility] Glucagon (Glucagen Diagnostic Kit) 0 mg IM STAT PRN; Protocol PRN Reason: Hypoglycemia Protocol Hydrochlorothiazide (Hydrodiuril) 25 mg PO DAILY [facility] Last Admin: 09/06/18 09:25 Dose: 25 mg Hydromorphone HCl (Dilaudid) 1 mg IVP Q4H PRN PRN Reason: Pain, moderate (4-7) Last Admin: 09/05/18 21:06 Dose: 1 mg Hydromorphone HCl (Dilaudid) 1 mg IVP Q4H PRN PRN Reason: Pain, severe (8-10) Last Admin: 09/06/18 19:34 Dose: 1 mg Sodium Chloride (Sodium Chloride 0.9%) 1,000 mls @ 100 mls/hr IV .Q10H [facility] Last Admin: 09/07/18 05:15 Dose: 100 mls/hr Dextrose (Dextrose 5% In Water 1000 Ml) 1,000 mls @ 0 mls/hr IV .Q0M PRN; Protocol PRN Reason: Hypoglycemia Protocol Tranexamic Acid 1,000 mg/ (Sodium Chloride) 60 mls @ 5 mls/min IV ONCE [facility] Clindamycin Phosphate (Cleocin 600mg/50ml Ns) 600 mg in 50 mls @ 102 mls/hr IVPB Q8H [facility]; Protocol Last Admin: 09/07/18 02:41 Dose: 102 mls/hr Insulin Aspart (Novolog) 0 unit SC ACHS [facility]; Protocol Last Admin: 09/06/18 21:53 Dose: Not Given Insulin Glargine (Lantus) 12 unit SC HS [facility] Last Admin: 09/06/18 21:54 Dose: 12 units Ketorolac Tromethamine (Toradol) 30 mg IVP Q6 [facility] Stop: 09/08/18 18:01 Last Admin: 09/07/18 05:16 Dose: 30 mg Metoprolol Tartrate (Lopressor) 50 mg PO BID [facility] Last Admin: 09/06/18 19:33 Dose: 50 mg Ondansetron HCl (Zofran Inj) 4 mg IVP ONCE PRN PRN Reason: Nausea/Vomiting Oxycodone HCl (Oxycodone Immediate Release Tab) 10 mg PO Q4H PRN PRN Reason: Pain, moderate (4-7) Oxycodone/Acetaminophen (Percocet 5/325 Mg Tab) 1 tab PO Q4 PRN PRN Reason: Pain, Mild (1-3) Stop: 09/09/18 17:59 Oxycodone/Acetaminophen (Percocet 5/325 Mg Tab) 2 tab PO Q4H PRN PRN Reason: Pain, moderate (4-7) Stop: 09/09/18 17:59 Last Admin: 09/07/18 02:50 Dose: 2 tab Pantoprazole Sodium (Protonix Ec Tab) 40 mg PO DAILY [facility] Last Admin: 09/06/18 09:25 Dose: 40 mg Rosuvastatin Calcium (Crestor) 10 mg PO HS [facility] Last Admin: 09/06/18 21:54 Dose: 10 mg - Labs Labs: 09/07/18 07:04 09/07/18 07:04 PT 12.1 SECONDS (9.7-12.2) 09/05/18 07:50 INR 1.1 09/05/18 07:50 APTT 35 SECONDS (21-34) H 09/05/18 07:50 - Extremities Exam Additional comments: +ROM ankle DF/PF, toes, sensation intact, +DP/PT pulses, calves soft NT neg homans Assessment and Plan (1) Broken internal hip prosthesis Assessment & Plan: POD#1 s/p revision THR PT/OT d/c planning post hip precautions hemovac 20 overnight, 20 this am, pulled d/w Dr. Sebastian, agrees with above Status: Acute (2) Diabetes mellitus type 2, uncontrolled Status: Acute (3) Vitamin D deficiency Assessment & Plan: supp Status: Acute
[2018-09-07] MEDS: (Novolog) Insulin Aspart, Recombinant 100 u/ml 10 ml vial SC SCH ×4 (08:30→22:57)
[2018-09-07] MEDS: HYDROmorphone 1 mg/ml ISec IVP PRN ×2 (09:39→21:26)
[2018-09-07] MEDS: Calcium-Vit D 250 mg-125 Units Tab UD PO SCH (09:39)
[2018-09-07] MEDS: Pantoprazole 40 mg EC Tab PO SCH (09:40)
[2018-09-07] MEDS ORDERED: Ergocalciferol 50,000 Intl Units Cap PO SCH (10:00)
--- NOTE | 2018-09-07 17:26 | PN ---
DATE: 09/07/2018 ENDOCRINOLOGY FOLLOWUP NOTE LOCATION: Room 652. SUBJECTIVE: This is a 57-year-old male with recent right hip fracture in the area of the right hip prosthesis and is now being followed closely for metabolic management. His glycemic levels have been fluctuating, but improved and the glucose values have ranged from 218 to 362 mg/dL. LABORATORY DATA: His chemistry showed a BUN of 26, sodium 131, potassium 4.2, chloride 99, CO2 of 28, glucose 211 and creatinine 0.9. His bedtime glucose was 269 mg/dL. ASSESSMENT: This is a 57-year-old male with uncontrolled and decompensated type 2 insulin requiring diabetes with marked hyperglycemic accelerations with the intercurrent physical stressors and now underwent a right hip repair of the recent hip replacement because of the intercurrent fracture in the same area as noted. PLAN AND MANAGEMENT: We will modify his current basal insulin and increase the Lantus to 20 units subcu at bedtime daily to start tonight. We will also add a dual oral hypoglycemic drug therapy with Januvia given as 100 mg daily and metformin at 500 mg b.i.d. as ordered. We will titrate incrementally as indicated to optimize metabolic control. We will also continue the low dose correction scale using Novolog insulin as given. We will hopefully be giving the insulin therapy only for inpatient diabetic management to help lower the glucose toxicity as noted. We will obtain serial chemistries and supplement accordingly as needed. We will follow. Radha Martins MD
[2018-09-07] MEDS: Enoxaparin 40 mg Syringe SC SCH (18:22)
--- NOTE | 2018-09-07 20:03 | OP ---
PROCEDURE DATE: 09/06/2018 PREOPERATIVE DIAGNOSES: 1. Fractured femoral component, status post right total hip replacement arthroplasty. 2. Morbid obesity. POSTOPERATIVE DIAGNOSES: 1. Fractured femoral component, status post right total hip replacement arthroplasty. 2. Morbid obesity. PROCEDURES: 1. Complex revision right total hip replacement. 2. Extraction of the fractured femoral component. 3. Trochanteric osteotomy. 4. Femoral neck osteotomy. 5. Release of iliopsoas tendon. 6. Autograft and allograft bone grafting. 7. Computer navigation with [employer] technology. SURGEON: Eyal Sebastian MD ART HANDLER: Gris Anthony, certified registered nursing physician assistant primary care. SECOND PRINTING ASSISTANT: Aristides Hillman PA-C SPECIMENS REMOVED: Synovium and bone. BLOOD LOSS: 175 mL. BLOOD PRODUCTS: No blood products given. DRAIN: One Hemovac drain. INCISION TIME: 13:50. TIME IN THE ROOM: 12:30. END OF SURGERY: 17:40. OPERATIVE FINDINGS: 1. Fractured femoral component, status post stable right total hip replacement. 2. Synovitis with contracture, synovitis and adhesions in the hip joint. 3. Iliopsoas tendon contracture, capsular contracture, and acetabular component, which was well fixed. Again, it should be noted that because of the amount of time preparing, the amount of instrumentation to achieve the operative goal, the amount of time in the duration of the procedure, the successful postoperative x ray and result, the complexity modifier is indicated for this particular procedure. OPERATIVE INDICATIONS: Freddy Gatica is a 57-year-old gentleman, who had sustained a fall in an apartment building in [place], sustaining immediate pain and inability to ambulate. The patient presented to the emergency room at [facility]. The patient was admitted with a fractured femoral component. The patient had been done by Dr. Rachele Rodríguez approximately five years ago and the patient had problems with the hip over the course of the tenure of the postoperative course. The patient was stabilized medically. Pros, cons, risks, and benefits of surgical approach were discussed with the patient. The patient was demanding a surgical revision. The possibility of extraction of femoral stem and revision of the femoral stem was discussed. The possibility of complete total hip replacement was discussed such that the acetabular component is not perfect, but if well fixed, it will be left to minimize the operative time, blood loss, and bone destruction. The possibility of leg length inequality, possibility of recurrent dislocation, possibility of mechanical failure, infection, thromboembolic disease, possibility of secondary or tertiary surgery was discussed. The patient could no longer stand the discomfort and wished the surgery to be accomplished. DESCRIPTION OF PROCEDURE: After having obtained informed consent in the above fashion, after having identified the side, site, and procedure and a critical pause/time-out, after the satisfactory induction of spinal and general endotracheal anesthesia by Dr. Charles, the right lower extremity was prepped and free draped in usual fashion for posterolateral revision hip replacement surgery. The patient was placed in direct lateral decubitus position with all bony prominences well padded. It should be noted that preoperatively, the patient is morbidly obese in the vicinity of 290 pounds. The patient was placed in the direct lateral decubitus position. The right lower extremity was prepped and free draped in the usual fashion for lower extremity surgery. After having obtained informed consent, after having identified side, site, and procedure, and a critical pause/time out, after satisfactory induction of the anesthetic, again the patient was identified as Freddy Gatica in the direct lateral decubitus position. The pins were placed in the iliac crest initially for the use of the [employer] navigation device. Computer navigation commenced at this point of time. Two #11 stab wounds were accomplished and the positioning screws for the Intellijoint was introduced. The Intellijoint screws were introduced. Camera was introduced and registration at this point commenced. The registration jimmie and sensor were placed in line with the axis of the body, extending from the greater trochanter to the point of the acromion. This having been accomplished, registration was accomplished and the surgery commenced. The original incision was identified and an incision was described approximately 10 inches in extent, centered on the greater trochanter in the fashion described by Gretta and Tobias as a modification to [place] approach. The skin incision was carried down through the skin and subcutaneous tissue. Hemostasis was controlled with the Aquamantys and electrocautery. The incision was carried down to the fascia and to the gluteus terra. At this point in time, Irene-Elisabet retractors were placed. A solution of 1:1000 epinephrine 2 mL and 250 mL of saline was used for irrigation and to control hemostasis. It should be noted that preoperative tranexamic acid was employed as well. The incision is carried down to the fascia. The gluteus terra was divided and the fascia bhakti was divided. At this point in time, the vastus lateralis was identified and from the overlying iliotibial band. A Charnley retractor was placed and the gluteus terra tendon insertions to the posterior aspect of the femur was released. Possibility of an extended trochanteric osteotomy was entertained. The possibility of removing the prosthesis from the superior aspect of the femur was entertained as well. This having been accomplished, the dissection was carried to the superior aspect of the acetabulum in the area of the reflected head of rectus femoris. There was found to be a massive scar. Arthrotomy was accomplished at this point in time and an extensive excision of scar and synovium with extensive synovitis and extensive hip synovectomy was accomplished. Scar was removed from the hip joint. Extensive synovectomy is accomplished. The soft tissues were elevated from the superior aspect of the acetabulum to allow mobilization of the femur later in the procedure. This having been accomplished and with internal rotation having been accomplished, the capsular flap was elevated from the posterior aspect of the femur. Again, the redundant scar, which manifested after this technical part of the exercise was accomplished, synovectomy was accomplished. The capsule was tagged with #2 FiberWire. This having being accomplished, with further internal rotation, the femur was mobilized. There was contracture of the anterior aspect of the femur. Contracture was released as part of the extensive capsular release and extensive synovectomy. The iliopsoas tendon was found to be intact. The iliopsoas tendon was released as well to further mobilize the femur to obtain access to the fractured stem. This having being accomplished, the borders of the acetabulum having been identified, the fractured neck and head were removed from the acetabulum. It was very important at this point in time that the femur having been mobilized, the femur was delivered into the wound and held with a proximal femoral elevator retractor. Again, extensive release of the anterior capsule was accomplished. This having been accomplished, a trochanteric osteotomy was accomplished using the oscillating saw to allow access to the femoral stem. It should be noted that a complexity modifier at this point in time was operative because the amount of time it takes to extract a broken femoral stem from the femur. The greater trochanteric osteotomy having been accomplished, a secondary femoral neck osteotomy was planned and an ideal leg length equality. This was planned preoperatively and intraoperatively. Femoral neck osteotomy was accomplished with the oscillating saw, again approximately 12 to 15 mm above lesser trochanter. This having being accomplished, dissection around the prosthesis commenced. Preoperative planning with respect to the preoperative x-ray had been accomplished. Using the high-speed drill, the proximal aspect of the component was dissected. Then, using a combination of the flexible osteotomes and the Accu-Carroll device going first laterally, then anteriorly, and then posteriorly, the interface between the bone and the prosthesis was developed. Great care was taken to hug the prosthesis to avoid intraoperative fracture. This was accomplished using flexible osteotomes and the Accu-Carroll funeral limousine driver. This having being accomplished and an extensive dissection, a great deal of time was taken. Therefore, defining the complexity modifier. The time it took to remove the prosthesis was probably 45 minutes to 1 hour. The femoral neck extractor was applied to the cut femoral neck and the fractured femoral neck and the prosthesis was removed with impaction. The prosthesis having being removed successfully, there was found to be a pedicle in the femoral canal and this was removed using the barrie. The barrie removed the pedicle and sequential reaming commenced, taking great care not to perforate the cortex from 9 mm through 13 mm. Size 13 trial was accomplished. Broaching was accomplished to a 13 mm stem. A 13-mm broach having been introduced, the pedicle having been carefully perforated with the barrie and with the reamers, broaching was accomplished up to #13 and #13 broach was intact. Using a standard neck, +6 head, the hip was reduced and was found to be stable in all planes. It should be noted that the iliopsoas tendon had been released and extensive capsular release had been accomplished. Pseudocapsule was excised. Extensive synovectomy was accomplished. At this point in time, attention is turned to the acetabulum. The acetabulum was exposed using a C-retractor anteriorly. The superior aspect of the acetabulum was exposed and this having been accomplished, the entire border of the acetabulum was identified and was found to be originally fixed. On x-ray, there seemed to be a lucency medially. Despite the lucency, fixation with three screws offered excellent ingrowth and the acetabulum although a bit too anteverted, the decision was made to retain it. There was no damage whatsoever to the polyethylene. At this point in time, the rim of the Intellijoint computer navigation commenced and using the sensor around the border of the acetabulum, the sensor registered the cup at 50 degrees of abduction and approximately 33 degrees of anteversion. With this formation of 33 degrees of anteversion, the decision was made to retrovert the stem a bit to allow for a combined anteversion, which was more stable than what the patient had initially. Initially, the patient had undergone dislocation x2. This having being accomplished, broaching having been accomplished, the appropriate sized fully coated femoral model component was introduced, again in proximally neutral anteversion instead of the normal 15 to 20 degrees of anteversion on the femoral side. The stem was introduced. Trialing was accomplished with +6, 36 mm head. The hip was reduced and found to be stable in all planes. It should be noted that the computer navigation was critical to the success of this procedure because it revealed that the cup was too abducted and too anteverted and adjustments were made on the femoral side. This having being accomplished, the stem having being introduced, fixation was rigid. No evidence of fracture. At this point in time, autograft and allograft bone grafting was accomplished to the area of the femur. Again, there was no perforation of the femoral cortex. Bone grafting having being accomplished, the head was impacted. The hip was reduced and found to be stable in all planes. The wound was thoroughly irrigated. Hemostasis was controlled with the epinephrine solution, Aquamantys and hemostasis with the electrocautery. Gluteus terra tendon was repaired using #2 FiberWire. The capsule was repaired using #2 FiberWire and closure in layers over an 8-inch Hemovac drain using #2 Quill, followed by #2 Quill for Nevin's fascia, 0 Vicryl, 2 0 Vicryl and raphael for skin, again over an 8-inch Hemovac drain. Freddy Cm compression dressing was applied. The operative procedure could not be completed without the assistance of Aristides Hillman PA-C and Gris Anthony, certified registered nursing physician assistant primary care. Postoperative x rays showed acceptable position of construct. It should be noted that the complexity modifier had to be applied to this case because of the patient's morbid obesity. It should be noted that preoperative diagnosis includes morbid obesity. The patient was approximately 290 pounds. The patient tolerated the procedure well. Eyal Sebastian MD [facility] # [id number]
[2018-09-07] MEDS ORDERED: (Lantus) Insulin Glargine, Recombinant SC SCH (22:00)
[2018-09-08 01:29] VITALS: RESP 20
[2018-09-08] MEDS: (Novolog) Insulin Aspart, Recombinant 100 u/ml 10 ml vial SC SCH ×4 (07:47→21:28)
[2018-09-08] MEDS: HYDROmorphone 1 mg/ml ISec IVP PRN ×2 (08:59→20:49)
[2018-09-08] MEDS: Calcium-Vit D 250 mg-125 Units Tab UD PO SCH (09:05)
[2018-09-08] MEDS: Pantoprazole 40 mg EC Tab PO SCH (09:05)
--- NOTE | 2018-09-08 13:07 | CP.PCM.PN ---
Subjective - Date & Time of Evaluation Date of Evaluation: 09/08/18 Time of Evaluation: 10:45 - Subjective Subjective: S- pt with MINIMAL post op discomfort Objective - Vital Signs/Intake and Output Vital Signs (last 24 hours): Temp Pulse Resp BP Pulse Ox 98.1 F 93 H 20 115/78 97 09/08/18 07:10 09/08/18 07:10 09/08/18 07:10 09/08/18 07:10 09/08/18 07:10 Intake and Output: 09/08/18 09/08/18 06:59 18:59 Intake Total 500 Output Total 350 Balance 150 - Medications Medications: Current Medications Acetaminophen (Tylenol 325mg Tab) 650 mg PO Q4 [facility] Last Admin: 09/08/18 12:03 Dose: Not Given Amlodipine Besylate (Norvasc) 10 mg PO DAILY [facility] Last Admin: 09/08/18 09:06 Dose: 10 mg Aspirin (Ecotrin) 325 mg PO DAILY [facility] Last Admin: 09/04/18 10:34 Dose: 325 mg Bisacodyl (Dulcolax) 10 mg PO HS PRN PRN Reason: Constipation Calcium/Vitamin D (Oscal-D 250 Mg-125 Units Tab) 1 tab PO DAILY [facility] Last Admin: 09/08/18 09:05 Dose: 1 tab Cyclobenzaprine HCl (Flexeril) 10 mg PO DAILY [facility] Last Admin: 09/08/18 09:05 Dose: 10 mg Dextrose (Dextrose 50% Inj) 0 ml IV STAT PRN; Protocol PRN Reason: Hypoglycemia Protocol Dextrose (Glutose 15) 0 gm PO ONCE PRN; Protocol PRN Reason: Hypoglycemia Protocol Docusate Sodium (Colace) 100 mg PO BID [facility] Last Admin: 09/08/18 09:06 Dose: 100 mg Enoxaparin Sodium (Lovenox) 40 mg SC Q24H [facility] Last Admin: 09/07/18 18:22 Dose: 40 mg Ergocalciferol (Drisdol 50,000 Intl Units Cap) 1 cap PO Q7D [facility] Last Admin: 09/07/18 09:40 Dose: 1 cap Ferrous Sulfate (Feosol) 325 mg PO BID [facility] Last Admin: 09/08/18 09:06 Dose: 325 mg Folic Acid (Folic Acid) 1 mg PO DAILY [facility] Last Admin: 09/08/18 09:05 Dose: 1 mg Glucagon (Glucagen Diagnostic Kit) 0 mg IM STAT PRN; Protocol PRN Reason: Hypoglycemia Protocol Hydrochlorothiazide (Hydrodiuril) 25 mg PO DAILY [facility] Last Admin: 09/08/18 09:08 Dose: 25 mg Hydromorphone HCl (Dilaudid) 1 mg IVP Q4H PRN PRN Reason: Pain, severe (8-10) Last Admin: 09/08/18 08:59 Dose: 1 mg Dextrose (Dextrose 5% In Water 1000 Ml) 1,000 mls @ 0 mls/hr IV .Q0M PRN; Protocol PRN Reason: Hypoglycemia Protocol Tranexamic Acid 1,000 mg/ (Sodium Chloride) 60 mls @ 5 mls/min IV ONCE [facility] Insulin Aspart (Novolog) 0 unit [facility]; Protocol Last Admin: 09/08/18 12:05 Dose: 6 units Insulin Glargine (Lantus) 24 unit SC [facility] Ketorolac Tromethamine (Toradol) 30 mg IVP Q6 [facility] Stop: 09/08/18 18:01 Last Admin: 09/08/18 12:05 Dose: 30 mg [facility]) [facility] Last Admin: 09/08/18 09:05 Dose: 850 mg Metoprolol Tartrate (Lopressor) 50 mg PO BID [facility] Last Admin: 09/08/18 09:06 Dose: 50 mg Ondansetron HCl (Zofran Inj) 4 mg IVP ONCE PRN PRN Reason: Nausea/Vomiting Oxycodone HCl (Oxycodone Immediate Release Tab) 10 mg PO Q4H PRN PRN Reason: Pain, moderate (4-7) Oxycodone/Acetaminophen (Percocet 5/325 Mg Tab) 1 tab PO Q4 PRN PRN Reason: Pain, Mild (1-3) Stop: 09/09/18 17:59 Oxycodone/Acetaminophen (Percocet 5/325 Mg Tab) 2 tab PO Q4H PRN PRN Reason: Pain, moderate (4-7) Stop: 09/09/18 17:59 Last Admin: 09/07/18 12:20 Dose: 2 tab Pantoprazole Sodium (Protonix Ec Tab) 40 mg PO DAILY [facility] Last Admin: 09/08/18 09:05 Dose: 40 mg Rosuvastatin Calcium (Crestor) 10 mg PO HS [facility] Last Admin: 09/07/18 21:32 Dose: 10 mg Sitagliptin Phosphate (Januvia) 100 mg PO DAILY [facility] Last Admin: 09/08/18 09:05 Dose: 100 mg - Labs Labs: 09/07/18 07:04 09/07/18 07:04 PT 12.1 SECONDS (9.7-12.2) 09/05/18 07:50 INR 1.1 09/05/18 07:50 APTT 35 SECONDS (21-34) H 09/05/18 07:50 - Additional Findings Additional findings: Objective systemic- wnl no evidence for sepsis or thromboembolic diswease Musculoskeltal pt OOB pt ambulating R hip dressing intact no evidence for sepsis/thromboembolic disease post op Xrays- reveal excelelnt position of construct Assessment and Plan - Assessment and Plan (Free Text) Assessment: A- s/p complex Revision Right total hip replacment with computer navigation P- PROTECTED WEIGHT BEARING post op xrays- accpetable position of construct orthopedically stable
[2018-09-08] MEDS: Enoxaparin 40 mg Syringe SC SCH (17:02)
[2018-09-08] MEDS ORDERED: (Lantus) Insulin Glargine, Recombinant SC SCH (22:00)
[2018-09-09] MEDS: HYDROmorphone 1 mg/ml ISec IVP PRN ×3 (01:44→09:56)
[2018-09-09] MEDS: (Novolog) Insulin Aspart, Recombinant 100 u/ml 10 ml vial SC SCH ×4 (07:57→21:12)
[2018-09-09] MEDS: Calcium-Vit D 250 mg-125 Units Tab UD PO SCH (09:44)
[2018-09-09] MEDS: Pantoprazole 40 mg EC Tab PO SCH (09:44)
[2018-09-09] MEDS: oxyCODONE 10 mg Immediate Release Tab PO PRN ×3 (12:28→22:44)
[2018-09-09] MEDS: Enoxaparin 40 mg Syringe SC SCH (17:12)
--- NOTE | 2018-09-09 20:53 | PN ---
DATE: 09/08/2018 ENDOCRINOLOGY FOLLOWUP NOTE LOCATION: Room 652. SUBJECTIVE: This is a 57-year-old male with recent right hip fracture following an accidental fall and underwent a recent revision of the total hip replacement as undertaken by the orthopedic surgeon, Dr. Sebastian as noted. His glycemic levels are fluctuating as noted overnight and glucose levels have ranged from 245 to 297 mg/dL. His bedtime glucose was 277 mg/dL. LABORATORY DATA: His chemistry showed a BUN of 26, sodium 131, potassium 4.2, chloride 99, CO2 of 28, glucose 211 and creatinine 0.9. ASSESSMENT: This is a 57-year-old male with uncontrolled and decompensated type 2 insulin requiring diabetes with persistent glycemic fluctuations as expected with intercurrent physical stressors and is now being followed closely for metabolic management. PLAN OF MANAGEMENT: We will modify his basal insulin given as Levemir to 24 units subcu at bedtime daily, to start tonight. We will continue the low dose correction scale using Novolog insulin as given. We will also continue the dual oral hypoglycemic drug therapy given as Januvia at 100 mg daily and metformin at 850 mg b.i.d. as ordered. We will consider the addition of sulfonylureas as indicated to optimize metabolic control. We will obtain serial chemistries and supplement accordingly as needed. We will follow. Radha Martins MD
--- NOTE | 2018-09-09 21:23 | PN ---
DATE: 09/09/2018 ENDOCRINOLOGY FOLLOWUP NOTE LOCATION: Room 652. SUBJECTIVE: This is a 57-year-old male with recent accidental fall and sustained a right hip fracture and underwent a revision of both hip replacements on the right side as noted and he is being followed closely also for metabolic management because of recent hyperglycemic accelerations as noted thereof. His glucose levels overnight have ranged from 203 to 231 mg/dL. LABORATORY DATA: His chemistry showed a BUN of 26, sodium 131, potassium 4.2, chloride 99, CO2 of 28, glucose 211 and creatinine 0.9. ASSESSMENT: This is a 57-year-old male with uncontrolled and decompensated type 2 insulin requiring diabetes, now being followed closely for metabolic management. PLAN OF MANAGEMENT: We will modify once again his basal insulin regimen and increase the Lantus to 28 units subcu at bedtime daily to start tonight. We will titrate incrementally as indicated to optimize metabolic control. We will also continue the dual oral hypoglycemic drug therapy as given with Januvia given as 100 mg daily and metformin given as 850 mg b.i.d. as ordered. We will titrate incrementally as indicated to optimize metabolic control. We will obtain serial chemistries and supplement accordingly as needed. We will follow. Radha Martins MD
[2018-09-09] MEDS ORDERED: (Lantus) Insulin Glargine, Recombinant SC SCH (22:00)
[2018-09-10] MEDS: oxyCODONE 10 mg Immediate Release Tab PO PRN ×2 (04:56→13:27)
--- NOTE | 2018-09-10 07:06 | CP.PCM.PN ---
Subjective - Date & Time of Evaluation Date of Evaluation: 09/10/18 Time of Evaluation: 07:06 - Subjective Subjective: PGY-[address] Zhao's Service Pt seen and examined at bedside. Nursing reports no acute events overnight. POD #4. Patient found sitting comfortably at bedside after working with PT. PT reports patient was able to walk to the "end of the [place] and back." Patient admits 6-8/10, in the right hip while walking, but 2-3/10 while at rest. Patient states he is tolerating diet well; last BM this AM which was a "large amt per patient." He denies blood in stool, SOB, chest pain with exertion. Objective - Vital Signs/Intake and Output Vital Signs (last 24 hours): Temp Pulse Resp BP Pulse Ox 98.6 F 83 20 141/83 97 09/10/18 04:00 09/10/18 00:40 09/10/18 00:40 09/10/18 00:40 09/10/18 00:40 Intake and Output: 09/10/18 09/10/18 06:59 18:59 Intake Total 400 Output Total 1400 Balance -1000 - Medications Medications: Current Medications Acetaminophen (Tylenol 325mg Tab) 650 mg PO Q4 [facility] Last Admin: 09/10/18 03:32 Dose: Not Given Amlodipine Besylate (Norvasc) 10 mg PO DAILY [facility] Last Admin: 09/09/18 09:44 Dose: 10 mg Aspirin (Ecotrin) 325 mg PO DAILY [facility] Last Admin: 09/04/18 10:34 Dose: 325 mg Bisacodyl (Dulcolax) 10 mg PO HS PRN PRN Reason: Constipation Last Admin: 09/09/18 21:34 Dose: 10 mg Calcium/Vitamin D (Oscal-D 250 Mg-125 Units Tab) 1 tab PO DAILY [facility] Last Admin: 09/09/18 09:44 Dose: 1 tab Cyclobenzaprine HCl (Flexeril) 10 mg PO DAILY [facility] Last Admin: 09/09/18 09:44 Dose: 10 mg Dextrose (Dextrose 50% Inj) 0 ml IV STAT PRN; Protocol PRN Reason: Hypoglycemia Protocol Dextrose (Glutose 15) 0 gm PO ONCE PRN; Protocol PRN Reason: Hypoglycemia Protocol Docusate Sodium (Colace) 100 mg PO BID [facility] Last Admin: 09/09/18 17:11 Dose: 100 mg Enoxaparin Sodium (Lovenox) 40 mg SC Q24H [facility] Last Admin: 09/09/18 17:12 Dose: 40 mg Ergocalciferol (Drisdol 50,000 Intl Units Cap) 1 cap PO Q7D [facility] Last Admin: 09/07/18 09:40 Dose: 1 cap Ferrous Sulfate (Feosol) 325 mg PO BID [facility] Last Admin: 09/09/18 17:11 Dose: 325 mg Folic Acid (Folic Acid) 1 mg PO DAILY [facility] Last Admin: 09/09/18 09:45 Dose: 1 mg Glucagon (Glucagen Diagnostic Kit) 0 mg IM STAT PRN; Protocol PRN Reason: Hypoglycemia Protocol Hydrochlorothiazide (Hydrodiuril) 25 mg PO DAILY [facility] Last Admin: 09/09/18 09:44 Dose: 25 mg Hydromorphone HCl (Dilaudid) 1 mg IVP Q4H PRN PRN Reason: Pain, severe (8-10) Last Admin: 09/09/18 09:56 Dose: 1 mg Tranexamic Acid 1,000 mg/ (Sodium Chloride) 60 mls @ 5 mls/min IV ONCE [facility] Insulin Aspart (Novolog) 0 unit SC [facility]; Protocol Last Admin: 09/09/18 21:12 Dose: Not Given Insulin Glargine (Lantus) 28 unit SC [facility] Last Admin: 09/09/18 21:33 Dose: 28 units [facility] ([facility]) [facility] Last Admin: 09/09/18 16:06 Dose: 850 mg Metoprolol Tartrate (Lopressor) 50 mg PO BID [facility] Last Admin: 09/09/18 17:11 Dose: 50 mg Ondansetron HCl (Zofran Inj) 4 mg IVP ONCE PRN PRN Reason: Nausea/Vomiting Oxycodone HCl (Oxycodone Immediate Release Tab) 10 mg PO Q4H PRN PRN Reason: Pain, moderate (4-7) Last Admin: 09/10/18 04:56 Dose: 10 mg Pantoprazole Sodium (Protonix Ec Tab) 40 mg PO DAILY [facility] Last Admin: 09/09/18 09:44 Dose: 40 mg Rosuvastatin Calcium (Crestor) 10 mg PO [facility] Last Admin: 04/07/19 21:34 Dose: 10 mg Sitagliptin Phosphate (Januvia) 100 mg PO DAILY [facility] Last Admin: 09/09/18 09:44 Dose: 100 mg - Labs Labs: 09/07/18 07:04 09/07/18 07:04 PT 12.1 SECONDS (9.7-12.2) 09/05/18 07:50 INR 1.1 09/05/18 07:50 APTT 35 SECONDS (21-34) H 09/05/18 07:50 - Additional Findings Additional findings: - Head Exam Head Exam: ATRAUMATIC, NORMAL INSPECTION - Eye Exam Eye Exam: EOMI, Normal appearance, PERRL. absent: Periorbital tenderness Pupil Exam: NORMAL ACCOMODATION, PERRL. absent: Irregular - ENT Exam ENT Exam: Mucous Membranes Moist, Normal Oropharynx - Respiratory Exam Respiratory Exam: Clear to Ausculation Bilateral, NORMAL BREATHING PATTERN. absent: Prolonged Expiratory Phase, Respiratory Distress - Cardiovascular Exam Cardiovascular Exam: REGULAR RHYTHM, +S1, +S2 - GI/Abdominal Exam GI & Abdominal Exam: Soft, Normal Bowel Sounds. absent: Hyperactive Bowel Sounds - Extremities Exam Extremities Exam: Full ROM, Normal Inspection. absent: Pedal Edema Hip exam: right hip TTP at surgical site; wrapped with fresh gauze - Back Exam Back Exam: NORMAL INSPECTION. absent: CVA tenderness (R), paraspinal tenderness - Neurological Exam Neurological Exam: Alert, Awake, CN II-XII Intact, Oriented x3 - Psychiatric Exam Psychiatric exam: Normal Affect, Normal Mood. absent: Depressed - Skin Skin Exam: Dry, Intact, Normal Color Assessment and Plan - Assessment and Plan (Free Text) Plan: 57 year old male with a past medical history of bilateral hip replacement, hypertension and hypercholesterolemia who presents to the hospital after tripping and hurting his hip. Plan: Right hip pain; S/p complex Revision Right total hip replacment -POD#4 -s/p mechanical fall -Hip xray:Fracture and dislocation of the right hip prosthesis noted. -Hip CT scan:Fracture at neck portion of the hip prosthesis. Mild superior displacement of the femoral shaft relative to the hip noted. -Physical therapy -Ortho on consult, Dr Sebastian, help appreciated Medications: Flexeril 10mg PO Daily Dilaudid 1mg IV Q4H PRN for severe pain Oxycodone 10mg PO Q4 PRN Ducolax 10mg po hs prn New Diagnosed Diabetes Mellitus -A1C 8.5 today -Started on ISS and accuchecks ACHS -Endocrinology on consult, Dr Martins, help appreciated - Lantus 28 units SC HS -Patient to be discharged on Metformin 850mg PO BID, Januvia 100mg PO DAILY [facility] Hypertension -Continue Norvasc 10mg PO DAILY -Continue Metoprolol 50mg PO BID -Continue Hydrochlorothiazide 25mg PO DAILY Hypercholesterolemia -Continue Rosuvastatin 10mg PO HS GI/DVT ppx -Protonix 40mg PO DAILY -Lovenox 40 mg SC DAILY, ASA 325mg PO Daily Dispo:POD #4. Continue physical therapy. Orthopedically stable for discharge - awaiting case mgmt for [facility] approval status Arslan Uribe PGY3 Plan discussed with Dr Zhao
[2018-09-10] MEDS: (Novolog) Insulin Aspart, Recombinant 100 u/ml 10 ml vial SC SCH ×2 (08:10→17:49)
[2018-09-10] MEDS: Pantoprazole 40 mg EC Tab PO SCH (10:34)
[2018-09-10] MEDS: Calcium-Vit D 250 mg-125 Units Tab UD PO SCH (10:35)
--- NOTE | 2018-09-10 13:40 | CP.PCM.PN ---
Subjective - Date & Time of Evaluation Date of Evaluation: 09/10/18 Time of Evaluation: 12:00 - Subjective Subjective: Patient seen and examined at bedside. Pain well controlled. No acute events over weekend. Denies CP/SOB/N/fever/dizziness. No other complaints. Objective - Vital Signs/Intake and Output Vital Signs (last 24 hours): Temp Pulse Resp BP Pulse Ox 98.6 F 90 20 144/80 98 09/10/18 07:00 09/10/18 07:00 09/10/18 07:00 09/10/18 07:00 09/10/18 07:00 Intake and Output: 09/10/18 09/10/18 06:59 18:59 Intake Total 400 Output Total 1400 Balance -1000 - Medications Medications: Current Medications Acetaminophen (Tylenol 325mg Tab) 650 mg PO Q4 [facility] Last Admin: 09/10/18 08:11 Dose: Not Given Amlodipine Besylate (Norvasc) 10 mg PO DAILY [facility] Last Admin: 09/09/18 09:44 Dose: 10 mg Aspirin (Ecotrin) 325 mg PO DAILY [facility] Last Admin: 09/04/18 10:34 Dose: 325 mg Bisacodyl (Dulcolax) 10 mg PO HS PRN PRN Reason: Constipation Last Admin: 09/09/18 21:34 Dose: 10 mg Calcium/Vitamin D (Oscal-D 250 Mg-125 Units Tab) 1 tab PO DAILY [facility] Last Admin: 09/10/18 10:35 Dose: 1 tab Cyclobenzaprine HCl (Flexeril) 10 mg PO DAILY [facility] Last Admin: 09/10/18 10:37 Dose: 10 mg Dextrose (Dextrose 50% Inj) 0 ml IV STAT PRN; Protocol PRN Reason: Hypoglycemia Protocol Dextrose (Glutose 15) 0 gm PO ONCE PRN; Protocol PRN Reason: Hypoglycemia Protocol Docusate Sodium (Colace) 100 mg PO BID [facility] Last Admin: 09/10/18 10:37 Dose: Not Given Enoxaparin Sodium (Lovenox) 40 mg SC Q24H [facility] Last Admin: 09/09/18 17:12 Dose: 40 mg Ergocalciferol (Drisdol 50,000 Intl Units Cap) 1 cap PO Q7D [facility] Last Admin: 09/07/18 09:40 Dose: 1 cap Ferrous Sulfate (Feosol) 325 mg PO BID [facility] Last Admin: 09/10/18 10:32 Dose: 325 mg Folic Acid (Folic Acid) 1 mg PO DAILY [facility] Last Admin: 09/10/18 10:31 Dose: 1 mg Glucagon (Glucagen Diagnostic Kit) 0 mg IM STAT PRN; Protocol PRN Reason: Hypoglycemia Protocol Hydrochlorothiazide (Hydrodiuril) 25 mg PO DAILY [facility] Last Admin: 09/10/18 10:41 Dose: 25 mg Hydromorphone HCl (Dilaudid) 1 mg IVP Q4H PRN PRN Reason: Pain, severe (8-10) Last Admin: 09/09/18 09:56 Dose: 1 mg Tranexamic Acid 1,000 mg/ (Sodium Chloride) 60 mls @ 5 mls/min IV ONCE [facility] Insulin Aspart (Novolog) 0 unit SC [facility]; Protocol Last Admin: 09/10/18 08:10 Dose: 4 units Insulin Glargine (Lantus) 28 unit SC [facility] Last Admin: 09/09/18 21:33 Dose: 28 units Met[facility] ([facility]) [facility] Last Admin: 09/10/18 08:33 Dose: 850 mg Metoprolol Tartrate (Lopressor) 50 mg PO BID [facility] Last Admin: 09/10/18 10:37 Dose: 50 mg Ondansetron HCl (Zofran Inj) 4 mg IVP ONCE PRN PRN Reason: Nausea/Vomiting Oxycodone HCl (Oxycodone Immediate Release Tab) 10 mg PO Q4H PRN PRN Reason: Pain, moderate (4-7) Last Admin: 09/10/18 13:27 Dose: 10 mg Pantoprazole Sodium (Protonix Ec Tab) 40 mg PO DAILY [facility] Last Admin: 09/10/18 10:34 Dose: 40 mg Rosuvastatin Calcium (Crestor) [address] [facility] Last Admin: 09/09/18 21:34 Dose: 10 mg Sitagliptin Phosphate (Januvia) 100 mg PO DAILY [facility] Last Admin: 09/10/18 10:31 Dose: 100 mg - Labs Labs: 09/07/18 07:04 09/07/18 07:04 PT 12.1 SECONDS (9.7-12.2) 09/05/18 07:50 INR 1.1 09/05/18 07:50 APTT 35 SECONDS (21-34) H 09/05/18 07:50 - Extremities Exam Additional comments: RLE: hip abd pillow in place Dressings intact with minimal serous drainage Wound CDI with raphael mild thigh swelling sensation intact SP/DP/TN motor intact EHL/FHL/TA/G pedal pulse intact calves soft NT b/l Assessment and Plan (1) Broken internal hip prosthesis Assessment & Plan: POD# 4 s/p R revision MEME -pain controlled -PT/OT -Dressings changed -posterior hip precautions, hip abd pillow -DVT ppx -d/c planning to [facility] -orthopedically stable -d/w Dr. Sebastian who agrees with above Status: Acute
[2018-09-10 17:16] VITALS: PULSE 99; TEMP 99; O2SAT 100
[2018-09-10] MEDS: Enoxaparin 40 mg Syringe SC SCH (17:50)
[2018-09-10 18:31] VITALS: BP 111/77
--- NOTE | 2018-09-10 20:56 | PN ---
DATE: 09/10/2018 ENDOCRINOLOGY FOLLOWUP NOTE LOCATION: Room 652. SUBJECTIVE: This is a 57-year-old male with recent uncontrolled type 2 insulin-requiring diabetes, presenting here with a right hip fracture from an accidental fall and underwent revision of right hip replacement as noted and is now being followed closely also for metabolic management. His glycemic levels are fluctuating but improved and the glucose levels have ranged from 178 to 198 and 213 mg/dL. LABORATORY DATA: His chemistries showed a BUN of 26, sodium 131, potassium 4.2, chloride 99, CO2 of 28, glucose of 211, and creatinine 0.9. ASSESSMENT AND PLAN: So at this time, we will continue the same basal insulin to optimize metabolic control. We will continue the dual oral hypoglycemic drug therapy as given with Januvia given for 100 mg daily and metformin at 850 mg two times daily with meals as ordered. We will also titrate this basal insulin and increase the Lantus to 30 units subcutaneous at bedtime daily to start tonight. We will titrate incremental as indicated to optimize metabolic control. We will obtain serial chemistries and supplement accordingly as needed. We will follow. Radha Martins MD
[2018-09-10] MEDS ORDERED: (Lantus) Insulin Glargine, Recombinant SC SCH (22:00)
--- NOTE | 2018-09-12 12:32 | DS ---
Mr. Gatica was admitted to the hospital with chief complaint of right hip pain after a fall. The patient has history of hip replacement. Patient found to have fracture prosthesis. The patient is to get bedrest. No specific concern. The patient underwent surgery for removal of broken prosthesis and placement of new one. The patient's postoperative recovery was uneventful. The patient was transferred to rehab. DIAGNOSIS: Fracture, prosthetic hip, patient got a new hip replacement. Veronique Zhao MD
== END 2018-09-10 21:00 | DRG 817 ==
LOC: C.ER 20:33 → C.9E 21:31 → C.6T 22:43
PROVIDERS: ADMIT Internal Medicine Pulmonary Disease; ATTEND Internal Medicine Pulmonary Disease
PROC: 0SPR0JZ Removal of Synthetic Substitute from Right Hip Joint, Femoral Surface, Open Approach (ICD-10-PCS; 2018-09-06)
PROC: 0SRR01Z Replacement of Right Hip Joint, Femoral Surface with Metal Synthetic Substitute, Open Approach (ICD-10-PCS; principal; 2018-09-06 11:30)
DX: T84.018A Broken internal joint prosthesis, other site, initial encounter (principal); E86.0 Dehydration; E11.65 Type 2 diabetes mellitus with hyperglycemia; I10 Essential (primary) hypertension; F17.210 Nicotine dependence, cigarettes, uncomplicated; M65.9 Synovitis and tenosynovitis, unspecified; E66.01 Morbid (severe) obesity due to excess calories; Z68.39 Body mass index [BMI] 39.0-39.9, adult; E78.00 Pure hypercholesterolemia, unspecified; Z79.4 Long term (current) use of insulin